=== PATIENT | male | born 1960 | race Caucasian/White ===

== ENCOUNTER 2019-10-12 10:28 | Day surgery (SDC) | payer SELFPAY ==
[2019-10-09 13:41] VITALS: BMI 23.0
[2019-10-12 10:40] VITALS: BP 126/81; PULSE 65; RESP 18; TEMP 36.4; O2SAT 100
--- NOTE | 2019-10-12 10:57 | W.PM.OPSUD ---
Surgery/Procedure H&P Update DATE OF PROCEDURE: October 12, 2019 DATE H&P PERFORMED: 10/09/19 H&P UPDATE INFORMATION: I have reviewed H&P completed within last 30 days, I have examined patient prior to procedure and No changes to prior documentation PREOP DIAGNOSIS: Left shoulder mass PLANNED PROCEDURE: Operation Date: 10/12/19 13:30 Proposed Procedures p Excision mass of left shoulder 22449 R22.9(Left) - Kevin Parsons MD
[2019-10-12] MEDS: sodium chloride 0.9% 1,000 ML 30 ML IV (11:11)
--- NOTE | 2019-10-12 11:26 | ANES.PREANE2 ---
Pre-Anesthetic Assessment Pre-Anesthetic Assessment: Height/Weight: Height 1.75 m Weight 70.76 kg Temp Pulse Resp BP Pulse Ox 97.5 F L 65 18 126/81 100 10/12/19 10:40 10/12/19 10:40 10/12/19 10:40 10/12/19 10:40 10/12/19 10:40 Preop Diagnosis: Left shoulder mass Proposed Procedure: Operation Date: 10/12/19 13:30 Proposed Procedures p Excision mass of left shoulder 30972 R22.9(Left) - Kevin Parsons MD Familial anesthetic complications: No history of anesthesia Was Beta Josemanuel taken within 24 hours: N/A Last intake: Intake Last Liquid Date 10/12/19 Last Liquid Time 08:00 Last Solid Date 10/11/19 Last Solid Time 23:00 Social: Social History: No alcohol and No tobacco Exam: Pre-Anes Outpt Exam: alert, oriented x 3, clear to auscultation bilaterally and regular rate & rhythm Airway: Cervical ROM: WNL MP: 2 Dentition: False Pulmonary: Pulmonary: None reported CV/HEM: CV/HEM: None reported : : None reported Hepatic: Hepatic: None reported GI: GI: GERD Metabolic: Metabolic: None reported Musc/skel: Musc/skel: None reported Neuropsych: Neuropsych: None reported Anesthetic Plan: ASA status: 1 Anesthesia: MAC Risk of > 500 ml blood loss (7ml/kg in children): No Meds/Allergies Current Medications: Current Medications Generic Name Dose Route Start Last Admin Trade Name Freq PRN Reason Stop Dose Admin Sodium Chloride 1,000 mls @ 30 ml s/hr 10/12/19 10:45 10/12/19 11:11 Sodium Chloride 0.9% IV 10/13/19 10:44 30 mls/hr .Q24H BILL Administration PFSH Anesthesia PFSH: Medical History BPH (benign prostatic hyperplasia) GERD (gastroesophageal reflux disease) Mass of skin, superficial, localized Family History Mother CAD (coronary artery disease) Cancer Denies family history of Anesthesia complication Bleeding disorder Social History Smoking and tobacco status: current every day smoker smokeless tobacco Household members: spouse Marital status: Current occupational status: employed Data Anesthesia Cardiac Studies: No Data to Display
[2019-10-12] MEDS: vancomycin 1,000 MG in sodium chloride 0.9% 250 ML 250 MG IV (11:31)
[2019-10-12] MEDS: lidocaine 1% INJ 20 mL SUBCUT (12:20)
[2019-10-12 12:31] VITALS: BP 114/67; PULSE 58; RESP 16; TEMP 36.7; O2SAT 97
[2019-10-12 13:32] VITALS: BP 135/79; PULSE 52; RESP 18; TEMP 36.8; O2SAT 98
--- NOTE | 2019-10-22 16:03 | PM.OP ---
Operative Report Date of procedure: October 12, 2019 Pre-op Diagnosis: Left shoulder mass Post-op diagnosis: same Procedure Done: Excision of mass left shoulder Specimens removed/disposition: Mass left shoulder Surgeon: Kevin Parsons Anesthesia: MAC Estimated blood loss (mL): 5 Condition: stable Disposition: PACU Procedure: The patient was taken to the operating room and placed in the right lateral position under MAC after IV antibiotic had been administered. The left shoulder was prepped and draped in a sterile manner. Using a 15 blade a 4 cm longitudinal incision was made over the palpable mass after 1% lidocaine with 0.5% Marcaine was infiltrated around the mass. Using electrocautery, the subcutaneous tissue was divided and the mass was dissected free from the surrounding subcutaneous tissue and underlying deltoid muscular fascia without difficulty. The wound was irrigated with saline and the specimen was sent to pathology. Subcutaneous tissue was approximated using running 3-0 Vicryl suture and skin was closed using running subcuticular 4-0 Monocryl suture and Dermabond. The patient was transferred to recovery room in stable condition.
== END 2019-10-12 13:45 | disposition home or self-care (01) ==
PROVIDERS: Family Provider Nurse Practitioner; PCP Family Medicine; Visit Provider Surgery
PROC: (CPT 23076; principal; 2019-10-12 13:20)
DX: D17.9 Benign lipomatous neoplasm, unspecified (principal); K21.9 Gastro-esophageal reflux disease without esophagitis; N40.0 Benign prostatic hyperplasia without lower urinary tract symptoms; F17.290 Nicotine dependence, other tobacco product, uncomplicated; Z82.49 Family history of ischemic heart disease and other diseases of the circulatory system
CPT/HCPCS: 23076; 12345; 88304; J2250; J2704; J3010; J3370; J3490; J7030; J7050

== ENCOUNTER 2020-11-25 11:23 | Inpatient (IN) | payer OTHER, SELFPAY ==
[2020-11-25] VITALS (8 sets, daily range): BP systolic 113–168; BP diastolic 63–82; PULSE 72–100; RESP 16–32; TEMP 37.1–38.8; O2SAT 89–95; BMI 23.6
--- NOTE | 2020-11-25 11:59 | XR_ITS ---
WS: [id number] Portable AP upright chest, 11/25/2020 Clinical Data: COVID/SOB Comparison: Portable chest, 05/10/2016. Findings: There is minimal bilateral patchy opacity. No nodules, masses or effusions are seen. The pu lmonary vascularity is not remarkable. The heart is not enlarged. The aortic arch is mildly tortuous. XR/XR chest 1V portable [id number] Impression: 1. Minimal bilateral patchy opacity which could represent acute pneumonia. 2. Atherosclerosis.
--- NOTE | 2020-11-25 12:03 | PC.NURSE ---
Denies pain, only body aches and stomach cramps
--- NOTE | 2020-11-25 16:30 | PC.NURSE ---
Assumed care of this patient at this time.
--- NOTE | 2020-11-25 17:07 | W.ED.COVID ---
HPI - COVID General: Chief Complaint: COVID symptoms Stated Complaint: sob, covid positive Time Seen by Provider: 11/25/20 16:22 Triage information: Has fever, cough or shortness of breath. Exposure to COVID + person last 14 days History of Present Illness: MD complaint: reported COVID exposure and has COVID symptoms COVID 19 common symptoms: positive fever(s), chills, cough, non-productive cough, dyspnea, fatigue, body aches, headache(s), throat pain, nasal congestion, nausea, vomiting and diarrhea COVID 19 other sytmptoms: positive requiring oxygen; negative chest pain Onset (ago): week(s) (1) Severity: moderate Treatment prior to arrival: none COVID Results: SARS-CoV-2 Antigen (Rapid) Positive (Negative) H 11/25/20 16:51 11/25/20 SARS-CoV-2 RNA (RT-PCR) Detected (NOT DETECTED) A 11/25/20 16:50 11/25/20 Review of Systems Const: Reports: fever(s), chills, body aches and fatigue ENMT: Reports: throat pain and nasal congestion Card: Denies: chest pain, edema, dyspnea on exertion or orthopnea Resp: Reports: dyspnea and non-productive cough GI: Reports: nausea, vomiting and diarrhea : Denies: flank pain, dysuria, urinary frequency or urinary urgency Skin/Breast: Denies: rash or pruritus Neuro: Reports: headache(s) [facility] PFSH: Medical History (Updated 12/02/20 @ 06:36 by Jorge Sams DO) BPH (benign prostatic hyperplasia) not on treatment GERD (gastroesophageal reflux disease) Surgical History H/O excision of mass (~09/2019) Lipoma left shoulder Family History (Updated 11/25/20 @ 22:35 by Maddi Bose MD) Mother CAD (coronary artery disease) Cancer Father CAD (coronary artery disease) Diabetes Denies family history of Anesthesia complication Bleeding disorder Social History (Updated 11/25/20 @ 22:36 by Maddi Bose MD) Smoking and tobacco status: current every day smoker smokeless tobacco Alcohol intake: never Substance/Drug Use: never Household members: spouse Marital status: Physical Exam Const: COMMON NORMALS: no acute distress GENERAL APPEARANCE: cooperative and comfortable ORIENTATION/CONSCIOUSNESS: Yes awake, Yes oriented to person, Yes oriented to place and Yes oriented to time HENMT: COMMON NORMALS: normocephalic, atraumatic and hearing grossly normal bilaterally HEAD & SCALP: normocephalic and atraumatic Resp: AUSCULTATION: crackles and wheezes Cardio: RATE: tachycardic RHYTHM: abnormal rhythm GI: COMMON NORMALS: Soft to palpation and No hepatosplenomegaly present AUSCULTATION: Yes normoactive bowel sounds PALPATION: Yes Soft to palpation, No Tenderness to palpation present (GI), No Guarding due to palpation present (GI) and Yes No hepatosplenomegaly present Extremity: COMMON NORMALS: normal to inspection, capillary refill normal, no clubbing, cyanosis or edema, no calf tenderness and no pedal edema Neuro: SENSORIUM/ORIENTATION: Yes oriented to person, Yes oriented to place and Yes oriented to time Skin: COMMON NORMALS: no rashes or lesions noted GENERAL SKIN EXAM: no rashes or lesions noted Course Vital Signs: Vital signs: Vital Signs Temperature 98.1 F 12/02/20 04:00 Pulse Rate 94 12/02/20 04:00 Respiratory Rate 18 12/02/20 04:00 Blood Pressure 112/70 12/02/20 04:00 Pulse Oximetry 96 12/02/20 04:00 MDM - COVID MDM Narrative: Medical decision making narrative: Covid pneumonia requiring oxygen support. Significant x-ray findings anticipate patient will require hospital stay given his clinical trajectory anticipate but significant potential for worsening condition. Discussed the hospitalist orders written. To start remdesivir and dexamethasone. Lab Data: Labs: Lab Results 11/25/20 11/25/20 11/25/20 Range/Units 16:40 16:40 16:40 WBC 4.7 (4.0-10.0) 10^3/ uL RBC 5.57 H (4.1-5.3) 10^6/u L Hgb 16.6 (11.7-16.6) g/dL Hct 50.3 (42.0-52.0) % MCV 90.3 (80-94) fl MCH 29.8 (28.0-34.0) pg MCHC 33.0 (30.0-36.0) g/dL RDW 13.0 (12.1-15.1) % Plt Count 177 (130-400) 10^3/c mm MPV 10.8 H (7.4-10.4) fL Neut % (Auto) 80.6 % Lymph % (Auto) 13.7 % [place] % (Auto) 4.9 % Eos % (Auto) 0.0 % Baso % (Auto) 0.4 % Neut # (Auto) 3.82 (1.8-7.7) 10^3/u L Lymph # (Auto) 0.7 L (0.8-4.8) 10^3/u L [place] # (Auto) 0.2 (0.2-0.9) 10^3/u L Eos # (Auto) 0.0 (0.0-0.8) 10^3/u L Baso # (Auto) 0.0 (0.0-0.1) 10^3/u L Nucleated RBC % (a uto) 0 % Nucleated RBCs # 0.0 /100WBC D-Dimer (0-0.59) ug/mIFE U Sodium 135 L (136-145) mmol/L Potassium 3.7 (3.5-5.1) mmol/L Chloride 93 L (98-107) mmol/L Carbon Dioxide 25 (22-29) mmol/L Anion Gap 20.7 H (5-19) BUN 11 (8-23) mg/dL Creatinine 0.9 (0.7-1.2) mg/dL GFR Calculation 85.5 L (90-130) mL/min Glucose 112 (65-115) mg/dL Calculated Osmolal ity 280 L (285-295) mOsm/k g Lactic Acid 2.0 (0.5-2.2) mmol/L Calcium 8.6 (8.5-10.5) mg/dL Total Bilirubin 0.6 (0.15-1.2) mg/dL AST 182 H (0-40) U/L ALT 127 H (0-41) U/L Alkaline Phosphata se 124 (40-130) IU/L C-Reactive Protein 109.7 H (0.0-4.9) mg/L Total Protein 7.8 (6.6-8.7) g/dL Albumin 4.0 (3.5-5.2) g/dL Globulin 3.8 (1.3-4.6) g/dL Procalcitonin 0.76 H (0-0.5) ng/mL SARS-CoV-2 RNA (RT -PCR) (NOT DETECTED) SARS-CoV-2 Ag (Rap id) (Negative) 11/25/20 11/25/20 11/25/20 Range/Units 16:40 16:50 16:51 WBC (4.0-10.0) 10^3/ uL RBC (4.1-5.3) 10^6/u L Hgb (11.7-16.6) g/dL Hct (42.0-52.0) % MCV (80-94) fl MCH (28.0-34.0) pg MCHC (30.0-36.0) g/dL RDW (12.1-15.1) % Plt Count (130-400) 10^3/c mm MPV (7.4-10.4) fL Neut % (Auto) % Lymph % (Auto) % [place] % (Auto) % Eos % (Auto) % Baso % (Auto) % Neut # (Auto) (1.8-7.7) 10^3/u L Lymph # (Auto) (0.8-4.8) 10^3/u L [place] # (Auto) (0.2-0.9) 10^3/u L Eos # (Auto) (0.0-0.8) 10^3/u L Baso # (Auto) (0.0-0.1) 10^3/u L Nucleated RBC % (a uto) % Nucleated RBCs # /100WBC D-Dimer 2.10 H (0-0.59) ug/mIFE U Sodium (136-145) mmol/L Potassium (3.5-5.1) mmol/L Chloride (98-107) mmol/L Carbon Dioxide (22-29) mmol/L Anion Gap (5-19) BUN (8-23) mg/dL Creatinine (0.7-1.2) mg/dL GFR Calculation (90-130) mL/min Glucose (65-115) mg/dL Calculated Osmolal ity (285-295) mOsm/k g Lactic Acid (0.5-2.2) mmol/L Calcium (8.5-10.5) mg/dL Total Bilirubin (0.15-1.2) mg/dL AST (0-40) U/L ALT (0-41) U/L Alkaline Phosphata se (40-130) IU/L C-Reactive Protein (0.0-4.9) mg/L Total Protein (6.6-8.7) g/dL Albumin (3.5-5.2) g/dL Globulin (1.3-4.6) g/dL Procalcitonin (0-0.5) ng/mL SARS-CoV-2 RNA (RT -PCR) Detected A (NOT DETECTED) SARS-CoV-2 Ag (Rap id) Positive H (Negative) COVID Results: SARS-CoV-2 Antigen (Rapid) Positive (Negative) H 11/25/20 16:51 11/25/20 SARS-CoV-2 RNA (RT-PCR) Detected (NOT DETECTED) A 11/25/20 16:50 11/25/20 Discharge Plan Discharge Patient Disposition: Admitted As Inpatient Admit Provider: Guido Tavares Clinical Impression: Pneumonia due to COVID-19 virus, Acute hypoxemic respiratory failure due to COVID-19 Condition: Stable Coding Level of Care Code 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
[2020-11-25 17:10] LABS: Basophils % 0.4 %; Hematocrit 50.3 % (42.0-52.0); Hemoglobin 16.6 g/dL (11.7-16.6); Lymphocytes # 0.7 10^3/uL (0.8-4.8); Lymphocytes % 13.7 %; Mean Corpuscular Hemoglobin 29.8 pg (28.0-34.0); Mean Corpuscular Volume 90.3 fl (80-94); Mean Platelet Volume 10.8 fL (7.4-10.4); Monocytes # 0.2 10^3/uL (0.2-0.9); Monocytes % 4.9 %; Neutrophils # 3.82 10^3/uL (1.8-7.7); Neutrophils % 80.6 %; Nucleated Red Blood Cells % 0 %; Platelet Count 177 10^3/cmm (130-400); Red Blood Count 5.57 10^6/uL (4.1-5.3); White Blood Count 4.7 10^3/uL (4.0-10.0)
[2020-11-25 17:22] LABS: SARS Covid-2 Antigen Positive (Negative)
[2020-11-25] MEDS: acetaminophen 500 mg Tablet 1000 MG PO (17:38)
[2020-11-25 17:44] LABS: Procalcitonin 0.76 ng/mL (0-0.5)
--- NOTE | 2020-11-25 17:52 | CTR_ITS ---
PROCEDURE INFORMATION: Exam: CTA Chest With Contrast Exam date and time: 11/25/2020 5:52 PM Age: 60 years old Clinical indication: Shortness of breath; Additional info: Elevated d dimer, covid TECHNIQUE: Imaging protocol: Computed tomographic angiography of the chest with contrast. 3D rendering (Not supervised by radiologist): MIP and/or 3D reconstructed images were created by the technologist. Radiation optimization: All CT scans at this facility use at least one of these dose optimization techniques: automated exposure control; mA and/or kV adjustment per patient size (includes targeted exams where dose is matched to clinical indication); or iterative reconstruction. Contrast material: OMNI 350; Contrast volume: 65 ml; Contrast route: INTRAVENOUS (IV); COMPARISON: CTA Chest-Pulmonary Emb [id number] 05/10/2016 11:11 PM RADIATION DOSE METRICS: Total DLP (mGy-cm): 562.92 FINDINGS: Pulmonary arteries: There is no evidence of filling defects within the pulmonary arterial circulation to suggest pulmonary embolism. Aorta: There is mild ectasia of the ascending thoracic aorta which measures 4 cm in diameter. This is larger than on 05/10/2016. There is no thoracic aortic aneurysm or dissection. Lungs: There are areas of ground-glass opacity in both lungs with consolidation and some crazy paving type appearance consistent with the given clinical history of COVID-19 infection. There is calcified granuloma in the left lower lobe. Pleural spaces: Unremarkable. No pneumothorax. No pleural effusion. Heart: Unremarkable. No cardiomegaly. No pericardial effusion. Lymph nodes: There are normal-sized mediastinal lymph nodes but no adenopathy. There are calcified hilar and mediastinal lymph nodes in keeping with old granulomatous disease. Gallbladder and bile ducts: Multiple calcified gallstones are present. Spleen: The spleen demonstrates punctate calcifications, consistent with remote granulomatous organism exposure. Bones/joints: Unremarkable. No acute fracture. Soft tissues: Unremarkable. CT/CT angio chest PE protcl [id number] IMPRESSION: 1. Commonly reported imaging features of COVID-19 pneumonia are present. Other processes such as influenza pneumonia and organizing pneumonia, as can be seen with drug toxicity and connective tissue disease, can cause a similar imaging pattern. 2. No evidence of pulmonary embolism. 3. Old granulomatous disease 4. Cholelithiasis Radiation Dose CTDIVOL = (mGy): DLP = 562.92 (mGy-cm)
[2020-11-25 18:09] LABS: Alanine Aminotransferase 127 U/L (0-41); Alkaline Phosphatase 124 IU/L (40-130); Anion Gap 20.7 (5-19); Aspartate Amino Transferase 182 U/L (0-40); Blood Urea Nitrogen 11 mg/dL (8-23); C Reactive Protein 109.7 mg/L (0.0-4.9); Calcium 8.6 mg/dL (8.5-10.5); Carbon Dioxide 25 mmol/L (22-29); Chloride 93 mmol/L (98-107); Globulin 3.8 g/dL (1.3-4.6); Glomerular Filtration Rate 85.5 mL/min (90-130); Glucose 112 mg/dL (65-115); Osmolality Calculated 280 mOsm/kg (285-295); Potassium 3.7 mmol/L (3.5-5.1); Sodium 135 mmol/L (136-145); Total Bilirubin 0.6 mg/dL (0.15-1.2); Total Protein 7.8 g/dL (6.6-8.7)
[2020-11-25] MEDS: iohexol 350 mg/mL 100 mL Btl IV (18:35)
--- NOTE | 2020-11-25 22:24 | P.HP_ITS ---
Providers/Chief Complaint Admitting Physician: Dr Bose Primary Care Provider: Zafar Lazcano Chief Complaint: sob, covid positive History of Present Illness Aamir Martinez is a 60 year old male Review of Systems Const: Reports: fever(s), chills, change in appetite, fatigue and malaise Eyes: Denies: blurry vision ENMT: Denies: throat pain, nasal congestion or other (loss of taste and smell) Card: Reports: dyspnea on exertion; Denies: chest pain, palpitations or edema Resp: Reports: dyspnea, productive cough, non-productive cough and chest congestion; Denies: wheezing, pain on inspiration or hemoptysis GI: Denies: abdominal pain, nausea, vomiting, diarrhea or constipation : Denies: difficulty urinating, urinary frequency or difficulty starting urination Musc: Reports: muscle weakness; Denies: neck pain, back pain or extremity pain Skin/Breast: Denies: rash or sores Neuro: Denies: headache(s), numbness in extremities, difficulty walking, dizziness or difficulty communicating thoughts Psych: Denies: anxiety [place]/Lymph: Denies: easy bleeding Medications/Allergies Home Medications Medication Instructions Recorded Confirmed Last Taken Type omeprazole 20 mg capsule,delayed 20 mg PO BID 10/08/19 11/25/20 11/25/20 History release ascorbic acid (vitamin C) [Vitamin 250 mg PO BID 11/25/20 11/25/20 11/24/20 History C] cholecalciferol (vitamin D3) 50 mcg PO DAILY 11/25/20 11/25/20 11/24/20 History [Vitamin D3] zinc 50 mg PO DAILY 11/25/20 11/25/20 11/24/20 History Allergies Allergy/AdvReac Type Severity Reaction Status Date / Time Penicillins Allergy Unknown Verified 11/05/19 09:04 PFSH Acute PFSH: Medical History (Updated 11/25/20 @ 22:35 by Maddi Bose MD) BPH (benign prostatic hyperplasia) not on treatment GERD (gastroesophageal reflux disease) Surgical History H/O excision of mass (~09/2019) Lipoma left shoulder Family History (Updated 11/25/20 @ 22:35 by Maddi Bose MD) Mother CAD (coronary artery disease) Cancer Father CAD (coronary artery disease) Diabetes Denies family history of Anesthesia complication Bleeding disorder Social History (Updated 11/25/20 @ 22:36 by Maddi Bose MD) Smoking and tobacco status: current every day smoker smokeless tobacco Alcohol intake: never Substance/Drug Use: never Household members: spouse Marital status: Vitals/I&O/Wt Last Vital Signs Temp 98.8 F 11/25/20 20:40 Pulse 74 11/25/20 20:40 Resp 18 11/25/20 20:40 BP 118/71 11/25/20 20:40 Pulse Ox 95 11/25/20 20:40 Weight last 48 hrs Weight 72.575 kg Physical Exam Narrative: EXAM NARRATIVE: Constitutional: alert but some difficulty answering questions, oriented to person, place and that he is here with worsening covid, not understanding why he has not been able to shake it , worried about his who is also in ED (but will be discharged), ill appearing HEENT: normocephalic, sclera and conjunctiva injected, no rhinorrhea, dry muscus membranes Neck: supple Respiratory: fine crackles bilaterally, no wheezes, no retractions, on 4 L bnc Cardiovascular: regular, no murmurs Abdomen: soft, non tender, positive bowel sounds Extremities: no edema, no cyanosis Skin: dry, no rashes or bruising Neuro: face symmetric, speech clear but slow to formulate thoughts, moves all extremities Psych: cooperative, worried about Data : 11/25/20 16:40 11/25/20 16:40 Other data: Laboratory Results WBC 4.7 10^3/uL (4.0-10.0) 11/25/20 16:40 RBC 5.57 10^6/uL (4.1-5.3) H 11/25/20 16:40 Hgb 16.6 g/dL (11.7-16.6) 11/25/20 16:40 Hct 50.3 % (42.0-52.0) 11/25/20 16:40 MCV 90.3 fl (80-94) 11/25/20 16:40 MCH 29.8 pg (28.0-34.0) 11/25/20 16:40 MCHC 33.0 g/dL (30.0-36.0) 11/25/20 16:40 RDW 13.0 % (12.1-15.1) 11/25/20 16:40 Plt Count 177 10^3/cmm (130-400) 11/25/20 16:40 MPV 10.8 fL (7.4-10.4) H 11/25/20 16:40 Neut % (Auto) 80.6 % 11/25/20 16:40 Lymph % (Auto) 13.7 % 11/25/20 16:40 [place] % (Auto) 4.9 % 11/25/20 16:40 Eos % (Auto) 0.0 % 11/25/20 16:40 Baso % (Auto) 0.4 % 11/25/20 16:40 Neut # (Auto) 3.82 10^3/uL (1.8-7.7) 11/25/20 16:40 Lymph # (Auto) 0.7 10^3/uL (0.8-4.8) L 11/25/20 16:40 [place] # (Auto) 0.2 10^3/uL (0.2-0.9) 11/25/20 16:40 Eos # (Auto) 0.0 10^3/uL (0.0-0.8) 11/25/20 16:40 Baso # (Auto) 0.0 10^3/uL (0.0-0.1) 11/25/20 16:40 Nucleated RBC % (auto) 0 % 11/25/20 16:40 Nucleated RBCs # 0.0 /100WBC 11/25/20 16:40 D-Dimer 2.10 ug/mIFEU (0-0.59) H 11/25/20 16:40 Sodium 135 mmol/L (136-145) L 11/25/20 16:40 Potassium 3.7 mmol/L (3.5-5.1) 11/25/20 16:40 Chloride 93 mmol/L (98-107) L 11/25/20 16:40 Carbon Dioxide 25 mmol/L (22-29) 11/25/20 16:40 Anion Gap 20.7 (5-19) H 11/25/20 16:40 BUN 11 mg/dL (8-23) 11/25/20 16:40 Creatinine 0.9 mg/dL (0.7-1.2) 11/25/20 16:40 GFR Calculation 85.5 mL/min (90-130) L 11/25/20 16:40 Glucose 112 mg/dL (65-115) 11/25/20 16:40 Calculated Osmolality 280 mOsm/kg (285-295) L 11/25/20 16:40 Lactic Acid 2.0 mmol/L (0.5-2.2) 11/25/20 16:40 Calcium 8.6 mg/dL (8.5-10.5) 11/25/20 16:40 Total Bilirubin 0.6 mg/dL (0.15-1.2) 11/25/20 16:40 AST 182 U/L (0-40) H 11/25/20 16:40 ALT 127 U/L (0-41) H 11/25/20 16:40 Alkaline Phosphatase 124 IU/L (40-130) 11/25/20 16:40 C-Reactive Protein 109.7 mg/L (0.0-4.9) H 11/25/20 16:40 Total Protein 7.8 g/dL (6.6-8.7) 11/25/20 16:40 Albumin 4.0 g/dL (3.5-5.2) 11/25/20 16:40 Globulin 3.8 g/dL (1.3-4.6) 11/25/20 16:40 Procalcitonin 0.76 ng/mL (0-0.5) H 11/25/20 16:40 SARS-CoV-2 Ag (Rapid) Positive (Negative) H 11/25/20 16:51 Impressions Chest X-Ray 11/25/20 11:59 Impression: 1. Minimal bilateral patchy opacity which could represent acute pneumonia. 2. Atherosclerosis. Chest CTA 11/25/20 17:52 IMPRESSION: 1. Commonly reported imaging features of COVID-19 pneumonia are present. Other processes such as influenza pneumonia and organizing pneumonia, as can be seen with drug toxicity and connective tissue disease, can cause a similar imaging pattern. 2. No evidence of pulmonary embolism. 3. Old granulomatous disease 4. Cholelithiasis Radiation Dose CTDIVOL = (mGy): DLP = 562.92 (mGy-cm) A&P Assessment and plan (1) Pneumonia due to COVID-19 virus: Dexamethasone started 11/25 Remdesivir started 11/25 4L BNC at admission CRP 109.7 Procalcitonin 0.76 Blood cultures were collected Check MRSA screen, sputum GS/culture, bacterial antigens Doxycycline empirically D dimer 2.10 CTA 11/25 no pulmonary embolism Pulmonary toilet Flutter, Incentive spirometer Respiratory therapy to follow Check addiitonal baseline covid labs and inflammatory markers Vitamin C, vitamin D, zinc Status: Acute (2) COVID-19 vaccination not done: Status: Acute (3) GERD (gastroesophageal reflux disease): chronically on PPI Status: Chronic Additional A&P Information Receords indicate history of BPH, he denies symptoms, not on medications Inpatient admission Check urinalysis If unable to urinate or significant desaturation with standing to urinate will place jeong Lovenox for DVT prophylaxis PPI for GI prophylaxis Supportive care otherwise Currently anticipate discharge home, possibly with oxygen therapy, however it will ultimately depend on clinical course also with covid, recieved monoclonal antibody in ED 11/25 but at day 9-10 so still at risk for return to need admission, was not requiring oxygen, primarily GI symptoms; Mr Martinez updated on her condition and arrangements made for them to see each other before he goes to the floor. Findings, concerns and plans, including current treatment plans with dexamethasone, Remdesivir, oxygen and supportive care were discussed and he was given an opportunity to ask questions Full code Attestations Medical Necessity Statement*: Anticipate stay greater than 2 midnights in patient with covid, requiring oxygen and other care as noted above. At high risk of rapid clinical decline. 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
--- NOTE | 2020-11-25 23:54 | ECG_ITS ---
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1960 Requested By: Maddi Bose Order Number: [id number] Reading MD: JUSTIN SHELTON Measurements Intervals [place] Rate: 68 P: 37 CT: 168 QRS: -33 QRSD: 160 T: 121 QT: 436 QTc: 466 Interpretive Statements SINUS RHYTHM LEFT AXIS DEVIATION [QRS AXIS < -30] LEFT BUNDLE BRANCH BLOCK [120+ ms QRS DURATION, 80+ ms Q/S IN V1/V2, 85+ ms R IN I/aVL/V5/V6] Compared to ECG 05/10/2016 23:36:19 Left-axis deviation now present Electronically Signed On 11-26-2020 20:17:53 CDT by JUSTIN SHELTON [id number]
[2020-11-26] VITALS (8 sets, daily range): BP systolic 115–129; BP diastolic 59–72; PULSE 62–78; RESP 14–20; TEMP 36.9–37.7; O2SAT 91–94; BMI 25.1
[2020-11-26] MEDS: enoxaparin 40 mg/0.4 mL Syringe SUBCUT ×2 (00:19→22:59)
[2020-11-26] MEDS: remdesivir 200 MG in sodium chloride 0.9% (100 ml) 60 ML 100 MG IV (00:39)
[2020-11-26] MEDS: dexamethasone 4 mg/mL INJ 6 MG IVP ×2 (00:50→23:27)
[2020-11-26 01:14] LABS: Influenza A by IFA Negative (Negative); Influenza B by IFA Negative (Negative)
[2020-11-26] MEDS: doxycycline 100 MG in sodium chloride 0.9% (plus) 100 ML IV ×3 (02:04→22:59)
[2020-11-26 03:49] LABS: ABG PCO2 39.3 mmHg (35-45); ABG PH Result 7.43 (7.35-7.45); Arterial Blood Gas Hematocrit 52.1 % (42-52); Base Excess ABG 1.6 mmol/L (-2.0-2.0); Blood Gas Sample Type Arterial; PO2 ABG 68.1 mmHg (80.0-100.0)
[2020-11-26 03:50] LABS: Blood Gas Sample Site Brachial, right; Oxygen Device NC
[2020-11-26 07:57] LABS: Hematocrit 48.8 % (42.0-52.0); Lymphocytes # 0.6 10^3/uL (0.8-4.8); Lymphocytes % 21.7 %; Mean Corpuscular HGB Conc 32.8 g/dL (30.0-36.0); Mean Corpuscular Hemoglobin 29.9 pg (28.0-34.0); Mean Platelet Volume 10.8 fL (7.4-10.4); Monocytes # 0.2 10^3/uL (0.2-0.9); Monocytes % 5.2 %; Neutrophils % 72.4 %; Nucleated Red Blood Cells % 0 %; Platelet Count 174 10^3/cmm (130-400); Red Blood Count 5.36 10^6/uL (4.1-5.3); Red Cell Distribution Width 13.2 % (12.1-15.1); White Blood Count 2.9 10^3/uL (4.0-10.0)
[2020-11-26 08:16] LABS: Lactate (Lactic Acid level) 1.9 mmol/L (0.5-2.2)
[2020-11-26 08:17] LABS: Troponin T (5th) Once 7 ng/L (0-15)
[2020-11-26 08:25] LABS: NT Pro B Type Natriuretic Pept 70 pg/mL (0-125); Procalcitonin 0.95 ng/mL (0-0.5)
[2020-11-26 08:36] LABS: Alanine Aminotransferase 126 U/L (0-41); Albumin Level 3.7 g/dL (3.5-5.2); Alkaline Phosphatase 111 IU/L (40-130); Anion Gap 22.1 (5-19); Aspartate Amino Transferase 168 U/L (0-40); Blood Urea Nitrogen 14 mg/dL (8-23); C Reactive Protein 126.4 mg/L (0.0-4.9); Calcium 8.2 mg/dL (8.5-10.5); Carbon Dioxide 22 mmol/L (22-29); Chloride 97 mmol/L (98-107); Globulin 2.8 g/dL (1.3-4.6); Glucose 136 mg/dL (65-115); Magnesium 2.3 mg/dL (1.7-2.3); Osmolality Calculated 287 mOsm/kg (285-295); Phosphorus 2.8 mg/dL (2.5-4.5); Potassium 4.1 mmol/L (3.5-5.1); Sodium 137 mmol/L (136-145); Total Bilirubin 0.5 mg/dL (0.15-1.2); Total Protein 6.5 g/dL (6.6-8.7)
[2020-11-26] MEDS: cholecalciferol (vitamin D3) 1,000 unit Tablet 2000 UNIT PO (09:08)
[2020-11-26] MEDS: docusate sodium 100 mg Capsule PO (09:08)
[2020-11-26] MEDS: ascorbic acid 500 mg Tablet 1000 MG PO ×2 (09:08→17:45)
[2020-11-26] MEDS: zinc gluconate 50 mg Tablet PO (09:08)
[2020-11-26 09:09] LABS: Ferritin 3156 ng/mL (30-400)
[2020-11-26] MEDS: pantoprazole DR 40 mg Tablet PO ×2 (09:09→17:45)
[2020-11-26 09:10] LABS: Lactate Dehydrogenase 621 U/L (135-225)
[2020-11-26 09:14] LABS: Creatine Phosphokinase 511 U/L (39-308)
[2020-11-26] MEDS: albuterol 8 gm MDI 2 PUFF INHALATION ×3 (09:45→21:21)
[2020-11-26 14:51] LABS: Add Urine Microscopic? YES; Bilirubin Urine Neg (Negative); Blood Urine 2+ (Negative); Glucose Urine UA Norm (Normal); Ketones Urine 1+ (Negative); Leukocyte Esterase Urine Negative (Negative); Nitrate Urine Negative (Negative); Protein Urine 1+ (Negative); Urine Appearance Clear (CLEAR); Urine Color Yellow (Yellow); Urobilinogen Urine Norm (Negative); pH Urine 5 (5-7)
[2020-11-26 15:12] LABS: Add Urine Culture? Yes; Bacteria Urine 2+ /hpf; Mucus Urine TRACE /hpf; RBC Urine 0-4 /hpf (0-2)
--- NOTE | 2020-11-26 16:01 | P.PN_ITS ---
Subjective Subjective: Interval history: 60-year-old male with a past medical history significant for benign prostatic hyperplasia, gastroesophageal reflux diseaseWho presented to the hospital with respiratory distress.This has been progressively worsening for the past week. Associated with intermittent episodes of fever, nonproductive cough and generalized weakness.Laboratory workup on arrival showed a WBC of 4.7, hemoglobin of 16.6, hematocrit of 50.3 and a platelet count of 177. D-dimer 2.10. Sodium 135, potassium 3.7, chloride 93, bicarb 25, BUN 11 and creatinine of 0.9. AST was elevated at 182, ALT of 127. CRP of 109. Procalcitonin of 0.76. Urinalysis was negative for leukocyte esterase or nitrates. Influenza A/B was negative. Rapid COVID-19 antigen was positive.Ferritin was elevated at 3156. LDH of 621. CK of 511.Imaging studies included a CTA of chest which showed multiple areas of ground-glass opacities bilaterally within both lungs with consolidation without any evidence of pulmonary embolism.Initial vitals showed a temperature of 101.8, pulse of 91, respiratory rate of 32 and a blood pressure of 168/73. Patient was placed on supplemental oxygen.This was later transitioned to high-flow nasal cannula.He was started on Decadron 6 mg IV daily for a 10 day course, Remdesivir 5 day treatment protocol to complete on 11/30, doxycycline 100 mg IV q.12 hours and albuterol neb q4hr prn. Subjective 11/26/2020 Patient transitioned to HFNC, Tmax 100.6 No new complaints. Denied chest pain, nausea, vomiting, abdominal pain, diarrhea or constipation. Medications: Reviewed: Yes Vitals/I&O/Wt Last Vital Signs Temp 98.4 F 11/26/20 15:19 Pulse 78 11/26/20 15:19 Resp 16 11/26/20 15:19 BP 115/59 11/26/20 15:19 Pulse Ox 91 11/26/20 15:19 11/26/20 11/26/20 11/26/20 06:59 14:59 22:59 Intake Total 160 / 160 300 / 300 Output Total 145 / 145 Balance 160 / 160 155 / 155 Weight last 48 hrs Weight 77.111 kg Weight 72.575 kg Physical Exam Narrative: EXAM NARRATIVE: General : Alert awake on supplemental oxygen HEENT; Grossly unremarkable CVS: NSR Chest: Mildly labored respiration ABD: Non-distended Ext: No edema Data : 11/26/20 07:23 11/26/20 07:23 Micro: Microbiology 11/26/20 13:52 Bacterial Antigens - Final Urine,Clean Catch 11/26/20 00:30 MRSA Culture - Final Nose A&P Assessment and plan (1) Acute hypoxemic respiratory failure due to COVID-19: Status: Acute (2) GERD (gastroesophageal reflux disease): Status: Chronic Additional A&P Information Acute hypoxemic respiratory failure due to COVID-19 pneumonia * RR > 30, labored respiration, on HFNC * COVID-19 ag positive * Remdesivir - 5 day protocol - last day on 11/30/20 * Decadron 6 mg IV daily D2 ( total 10 days) * Ferritin 3156, CRP 109, Pro-sylvia 0.76, LDH 621 * Tmax 100.6 - PRN Tylenol * May consider Actemera - will d/w Dr. Bose ( restricted med) * Empirically on Doxycycline 100 mg IV BID * Bacterial ag panel - pending, MRSA screen - Pending * Albuterol q4hr PRN, Spiriva daily * Zinc 50 mg PO daily, Vit.C * Repeat COVID-19 labs in am * Wean oxygen as tolerated Hx of GERD * Protonix 40 mg PO BID DVT ppx * Lovenox 40mg SQ daily Attestations Medical Necessity Statement*: Require further hospitalization for management of COVID-19 pneumonia Time Spent in Patient Care: Greater than 35 minutes (>than 50% of time spent in counselling and/or direct pt care on unit) . Coding Level of Care Code Acute Bed Bug Exterminator for [facility] Diagnoses Acute hypoxemic respiratory failure due to COVID-19 U07.1; J96.01 GERD (gastroesophageal reflux disease) K21.9
[2020-11-26 17:21] LABS: Quest SARS-CoV-2 RNA DETECTED (NOT DETECTED)
[2020-11-27] VITALS (8 sets, daily range): BP systolic 107–148; BP diastolic 58–71; PULSE 65–79; RESP 16–18; TEMP 36.7–37.3; O2SAT 90–95
[2020-11-27] MEDS: remdesivir 100 MG in sodium chloride 0.9% (100 ml) 80 ML IV (06:01)
[2020-11-27] MEDS: albuterol 8 gm MDI 2 PUFF INHALATION (09:16)
[2020-11-27] MEDS: cholecalciferol (vitamin D3) 1,000 unit Tablet 2000 UNIT PO (09:41)
[2020-11-27] MEDS: ascorbic acid 500 mg Tablet 1000 MG PO ×2 (09:41→17:25)
[2020-11-27] MEDS: pantoprazole DR 40 mg Tablet PO ×2 (09:41→17:25)
[2020-11-27] MEDS: zinc gluconate 50 mg Tablet PO (09:41)
[2020-11-27] MEDS: doxycycline 100 MG in sodium chloride 0.9% (plus) 100 ML IV ×2 (12:27→23:19)
[2020-11-27 12:54] LABS: Fibrinogen 528 mg/dL (174-498)
[2020-11-27 12:56] LABS: Hematocrit 47.9 % (42.0-52.0); Hemoglobin 15.9 g/dL (11.7-16.6); Lymphocytes # 0.4 10^3/uL (0.8-4.8); Lymphocytes % 8.7 %; Mean Corpuscular HGB Conc 33.2 g/dL (30.0-36.0); Mean Corpuscular Hemoglobin 30.1 pg (28.0-34.0); Mean Corpuscular Volume 90.5 fl (80-94); Mean Platelet Volume 10.5 fL (7.4-10.4); Monocytes # 0.3 10^3/uL (0.2-0.9); Monocytes % 5.6 %; Neutrophils # 4.23 10^3/uL (1.8-7.7); Neutrophils % 85.3 %; Nucleated Red Blood Cells % 0 %; Platelet Count 214 10^3/cmm (130-400); Red Blood Count 5.29 10^6/uL (4.1-5.3); Red Cell Distribution Width 13.2 % (12.1-15.1)
[2020-11-27 12:57] LABS: D Dimer 1.25 ug/mIFEU (0-0.59)
[2020-11-27 13:10] LABS: Alanine Aminotransferase 133 U/L (0-41); Albumin Level 3.4 g/dL (3.5-5.2); Alkaline Phosphatase 107 IU/L (40-130); Anion Gap 16.5 (5-19); Aspartate Amino Transferase 127 U/L (0-40); Blood Urea Nitrogen 14 mg/dL (8-23); C Reactive Protein 61.2 mg/L (0.0-4.9); Calcium 8.8 mg/dL (8.5-10.5); Carbon Dioxide 23 mmol/L (22-29); Chloride 101 mmol/L (98-107); Globulin 3.2 g/dL (1.3-4.6); Glomerular Filtration Rate 114.3 mL/min (90-130); Glucose 179 mg/dL (65-115); Magnesium 2.3 mg/dL (1.7-2.3); Osmolality Calculated 289 mOsm/kg (285-295); Potassium 3.5 mmol/L (3.5-5.1); Sodium 137 mmol/L (136-145); Total Bilirubin 0.5 mg/dL (0.15-1.2); Total Protein 6.6 g/dL (6.6-8.7)
[2020-11-27 13:13] LABS: Partial Thromboplastin Time 18.2 SECONDS (23.9-36.7); Procalcitonin 0.58 ng/mL (0-0.5)
[2020-11-27 13:43] LABS: Ferritin 3075 ng/mL (30-400)
--- NOTE | 2020-11-27 15:27 | P.PN_ITS ---
Subjective Subjective: Interval history: 60-year-old male with a past medical history significant for benign prostatic hyperplasia, gastroesophageal reflux diseaseWho presented to the hospital with respiratory distress.This has been progressively worsening for the past week. Associated with intermittent episodes of fever, nonproductive cough and generalized weakness.Laboratory workup on arrival showed a WBC of 4.7, hemoglobin of 16.6, hematocrit of 50.3 and a platelet count of 177. D-dimer 2.10. Sodium 135, potassium 3.7, chloride 93, bicarb 25, BUN 11 and creatinine of 0.9. AST was elevated at 182, ALT of 127. CRP of 109. Procalcitonin of 0.76. Urinalysis was negative for leukocyte esterase or nitrates. Influenza A/B was negative. Rapid COVID-19 antigen was positive.Ferritin was elevated at 3156. LDH of 621. CK of 511.Imaging studies included a CTA of chest which showed multiple areas of ground-glass opacities bilaterally within both lungs with consolidation without any evidence of pulmonary embolism.Initial vitals showed a temperature of 101.8, pulse of 91, respiratory rate of 32 and a blood pressure of 168/73. Patient was placed on supplemental oxygen.This was later transitioned to high-flow nasal cannula.He was started on Decadron 6 mg IV daily for a 10 day course, Remdesivir 5 day treatment protocol to complete on 11/30, doxycycline 100 mg IV q.12 hours and albuterol neb q4hr prn. Subjective 11/26/2020 Patient transitioned to HFNC, Tmax 100.6 No new complaints. Denied chest pain, nausea, vomiting, abdominal pain, diarrhea or constipation. 11/27/2020 Overall unchanged from yesterday No new complaints. Medications: Reviewed: Yes Vitals/I&O/Wt Last Vital Signs Temp 98.0 F 11/27/20 19:49 Pulse 73 11/27/20 19:51 Resp 18 11/27/20 19:51 BP 148/71 11/27/20 19:49 Pulse Ox 90 11/27/20 19:51 11/27/20 11/27/20 11/28/20 14:59 22:59 06:59 Intake Total 660 / 660 0 / 660 Balance 660 / 660 0 / 660 Weight last 48 hrs Weight 77.111 kg Physical Exam Narrative: EXAM NARRATIVE: General : Alert awake on supplemental oxygen HEENT; Grossly unremarkable CVS: NSR Chest: Mildly labored respiration ABD: Non-distended Ext: No edema Data : 11/27/20 11:52 11/27/20 11:52 A&P Assessment and plan (1) Acute hypoxemic respiratory failure due to COVID-19: Status: Acute (2) GERD (gastroesophageal reflux disease): chronically on PPI Status: Chronic Additional A&P Information Acute hypoxemic respiratory failure due to COVID-19 pneumonia * RR > 30, labored respiration, on HFNC * COVID-19 ag positive * Remdesivir - 5 day protocol - last day on 11/30/20 * Decadron 6 mg IV daily D3 ( total 10 days) * Ferritin 3156->3075, CRP 109->61.2, Pro-sylvia 0.76->0.58, LDH 621 * 11/26 Tmax 100.6 - PRN Tylenol 11/27- Fever curve improvng * May consider Actemera - CRP improving ( restricted med) * Empirically on Doxycycline 100 mg IV BID * Bacterial ag panel - pending, MRSA screen - Pending * Albuterol q4hr PRN, Spiriva daily * Zinc 50 mg PO daily, Vit.C * Repeat COVID-19 labs in am * Wean oxygen as tolerated Hx of GERD * Protonix 40 mg PO BID DVT ppx * Lovenox 40mg SQ daily Attestations Medical Necessity Statement*: Continue hospitalization for management of COVID-19 pneumonia Time Spent in Patient Care: Greater than 35 minutes (>than 50% of time spent in counselling and/or direct pt care on unit) . Coding Level of Care Code Acute Pecan Mallow Dipper for [facility] Diagnoses Acute hypoxemic respiratory failure due to COVID-19 U07.1; J96.01 GERD (gastroesophageal reflux disease) K21.9
--- NOTE | 2020-11-27 17:46 | PC.RESP ---
RT Shift Note Frequent safety and respiratory rounds continue. Orders completed as indicated. Patient monitored pre and post treatments throughout shift. Patient tolerated treatments appropriately. Condition did not change. Patient and/or sales representative raw fibers educated on respiratory treatment and medications. Patient and/or sales representative raw fibers verbalized understanding. Will continue to monitor patient progress.
[2020-11-27] MEDS: dexamethasone 4 mg/mL INJ 6 MG IVP (23:18)
[2020-11-27] MEDS: enoxaparin 40 mg/0.4 mL Syringe SUBCUT (23:18)
[2020-11-27] MEDS: acetaminophen 325 mg Tablet 650 MG PO (23:50)
[2020-11-28] VITALS (10 sets, daily range): BP systolic 122–133; BP diastolic 61–76; PULSE 68–81; RESP 14–28; TEMP 36.3–36.8; O2SAT 88–94
[2020-11-28] MEDS: remdesivir 100 MG in sodium chloride 0.9% (100 ml) 80 ML IV (05:54)
[2020-11-28] MEDS: pantoprazole DR 40 mg Tablet PO ×2 (08:04→17:38)
[2020-11-28] MEDS: ascorbic acid 500 mg Tablet 1000 MG PO ×2 (08:04→17:38)
[2020-11-28] MEDS: cholecalciferol (vitamin D3) 1,000 unit Tablet 2000 UNIT PO (08:04)
[2020-11-28] MEDS: zinc gluconate 50 mg Tablet PO (08:04)
--- NOTE | 2020-11-28 11:45 | USCV_ITS ---
Aamir Martinez Age: 60 Gender: M : 1960 Exam Date: 11/28/2020 13:13 Ordering Phys: Everett Phipps MD Technologist: MAYCOL Exam Location: [facility] [place] Indication: sob, covid + BP: / HR: 75 Rhythm: Sinus Technical Quality: Good MEASUREMENTS (Male / Female) Normal Values 2D ECHO LV Diastolic Diameter PLAX 4.3 cm 4.2 - 5.9 / 3.9 - 5.3 cm LV Systolic Diameter PLAX 3.0 cm IVS Diastolic Thickness 1.0 cm 0.6 - 1.0 / 0.6 - 0.9 cm IVS Systolic Thickness 1.6 cm LVPW Diastolic Thickness 1.3 cm 0.6 - 1.0 / 0.6 - 0.9 cm LVPW Systolic Thickness 1.5 cm LVOT Diameter 2.0 cm LV Ejection Fraction 2D Teich 57.4 % LV Ejection Fraction MOD 2C 70.7 % LV Ejection Fraction 2C AL 72.6 % LA Diameter 3.1 cm LA Width 2.7 cm LA Height 3.3 cm RA Width 2.6 cm RA Height 4.5 cm Aorta at Sinotubular Diameter 2.8 cm DOPPLER AV Peak Velocity 160.0 cm/s LVOT Peak Velocity 150.0 cm/s AV Area Cont Eq vti 2.8 cm squared AV Area Cont Eq pk 3.0 cm squared MV Peak Velocity 120.0 cm/s MV Area PHT 3.0 cm squared Mitral E to A Ratio 0.7 MV E' Velocity 44.5 cm/s Mitral E to MV E' Ratio 7.6 Mitral E to LV E' Lateral Ratio 7.6 Mitral E to LV E' Septal Ratio 7.6 TR Peak Velocity 208.8 cm/s TR Peak Gradient 17.4 mmHg TR Mean Velocity 213.0 cm/s TR Mean Gradient 20.1 mmHg TR Velocity Time Integral 72.8 cm PV Peak Velocity 146.0 cm/s RV Acceleration Time 0.1 s RV Ejection Time 0.2 s RV AcT/ET 0.3 FINDINGS Left Ventricle Normal left ventricular cavity size. Normal left ventricular systolic function. No regional wall motion abnormalities. Left ventricular ejection fraction is estimated at 60 %.Grade I/IV diastolic dysfunction (abnormal relaxation filling pattern), normal to mildly elevated filling pressures. Right Ventricle The right ventricle is normal in size and function. RVSP could not be calculated due to incomplete tricuspid regurgitation velocity profile. Right Atrium The right atrium is normal in size. Left Atrium The left atrium is normal in size. Mitral Valve Moderately thickened mitral valve. No mitral valve stenosis. Moderate mitral annular calcification. Aortic Valve Moderate aortic valve calcification. No aortic valve stenosis. No aortic valve regurgitation. Tricuspid Valve Structurally normal tricuspid valve without significant stenosis or regurgitation. Pulmonic Valve Structurally normal pulmonic valve without significant stenosis. There is no pulmonic regurgitation. Pericardium Normal pericardium without effusion. Aorta Normal ascending aorta dimension. CONCLUSIONS 1-Normal left ventricular cavity size. Normal left ventricular systolic function. No regional wall motion abnormalities. Left ventricular ejection fraction is estimated at 60 %.Grade I/IV diastolic dysfunction (abnormal relaxation filling pattern), normal to mildly elevated filling pressures. 2-Moderately thickened mitral valve. No mitral valve stenosis. Moderate mitral annular calcification. 3-Moderate aortic valve calcification. No aortic valve stenosis. No aortic valve regurgitation. 4-There is no pericardial effusion. 5-The right ventricle is normal in size and function. RVSP could not be calculated due to incomplete tricuspid regurgitation velocity profile. 6-Right atrial pressure is around 5 mm of mercury. 7-There are no prior echocardiogram studies to compare. Adalgsia Lim MD (Electronically Signed) Final Date: 28 November 2020 18:05 S
[2020-11-28] MEDS: cefTRIAXone 1,000 MG in sodium chloride 0.9% (plus) 50 ML 100 MG IV (12:23)
[2020-11-28 12:27] LABS: Iron 63 ug/dL (59-158); Percent Saturation 25.9 % (20-50); Total Iron Binding Capacity 243 mcg/dl; Unsaturated Iron Binding 180 ug/dL (112-347)
[2020-11-28 12:39] LABS: Thyroid Stimulating Hormone 0.31 uIU/mL (0.27-4.20)
[2020-11-28] MEDS: benzonatate 100 mg Capsule PO ×2 (14:55→23:46)
--- NOTE | 2020-11-28 16:21 | PC.RESP ---
RT Shift Note Frequent safety and respiratory rounds continue. Orders completed as indicated. Patient monitored pre and post treatments throughout shift. Patient did tolerate treatments appropriately. Condition improved. Patient and/or medical customer service representative educated on respiratory treatment and medications. Patient and/or medical customer service representative verbalized understanding. Will continue to monitor patient progress.
--- NOTE | 2020-11-28 16:33 | P.PN_ITS ---
Subjective Subjective: Interval history: Hospital course, labs appreciated. Examination patient is on 8 L high flow nasal cannula saturating 92%. Denies any nausea, vomiting, headache. Lying comfortably in bed. States he has been working with incentive spirometry and flutter valve. Wants to go home as soon as possible. Discussed in detail with need for continuous and regular I-S and Acapella use along with proning and semiproning techniques and for need for patient to be sitting up in chair for as long as possible. Patient verbalized understanding. Vitals/I&O/Wt Last Vital Signs Temp 97.5 F L 11/28/20 16:00 Pulse 74 11/28/20 16:00 Resp 18 11/28/20 16:00 BP 127/72 11/28/20 16:00 Pulse Ox 92 11/28/20 16:00 11/28/20 11/28/20 11/28/20 06:59 14:59 22:59 Intake Total 100 / 760 200 / 200 Output Total 200 / 200 Balance 100 / 760 200 / 200 -200 / 0 Physical Exam Narrative: EXAM NARRATIVE: General: No acute distress, AO x3, tired appearing HEENT: PERRLA, pupils bilaterally equal and reactive Chest: Bilateral bronchial breath sounds, occasional rhonchi present, equal good air entry bilaterally CVS: S1-S2 regular, no murmurs, no tachycardia, no gallops, no rubs Abdomen: Soft, nontender, no organomegaly, bowel sounds present Neuro: No focal deficits, no facial deformity, AO x3, power 5/5 in all limbs Data : 11/27/20 11:52 11/27/20 11:52 A&P Assessment and plan (1) Acute hypoxemic respiratory failure due to COVID-19: Status: Acute (2) COVID-19 vaccination not done: Status: Acute Additional A&P Information Hypoxia secondary to COVID-19 pneumonia: Mild to moderate disease. Oxygen supplementation keeping saturation over 88%. Dexamethasone 6 mg daily. Remdesivir to finish a 5-day course. Vitamin C, zinc. Advair, Spiriva. Pulmonary toilet with incentive spirometry flutter valve. We will monitor inflammatory markers including ferritin, ESR, CRP, D-dimer, fibrinogen. D-dimer elevated. CTA negative for pulmonary embolism. For now start patient on full dose anticoagulation with Eliquis 5 mg twice daily. Patient will most likely require anticoagulation for 2 weeks on discharge. Will monitor for anemia or blood loss. Return elevated. Check sputum culture, urine Legionella. Bacterial antigen negative. MRSA swab negative. Blood cultures not sent on admission. For now patient has remained afebrile so we will hold off on blood cultures. Stop doxycycline. Start patient on IV ceftriaxone and oral Levaquin. Will most likely require 5- day course. Will change antibiotics as per culture results. Given hypoxia will try to keep patient as negative as possible. Patient clinically dehydrated for now. For now we will hold off on diuresis for gentle hydration. Echocardiogram. Fluid restriction up to 1800 cc. Strict input output charting, daily weights. Full code. Protonix for PUD prophylaxis. Eliquis will help with DVT prophylaxis. Attestations Medical Necessity Statement*: Requires further hospitalization for management of severe hypoxia secondary COVID-19 pneumonia Time Spent in Patient Care: Greater than 35 minutes (>than 50% of time spent in counselling and/or direct pt care on unit) . Coding Level of Care Code Acute Manufacturing Director for [facility] Diagnoses Acute hypoxemic respiratory failure due to COVID-19 U07.1; J96.01 COVID-19 vaccination not done Z28.9
[2020-11-28] MEDS: ferrous gluconate 324 mg Tablet PO (17:38)
[2020-11-28] MEDS: dexamethasone 4 mg/mL INJ 6 MG IVP (23:45)
[2020-11-28] MEDS: apixaban 5 mg Tablet PO (23:46)
[2020-11-29] VITALS (10 sets, daily range): BP systolic 121–139; BP diastolic 71–79; PULSE 71–96; RESP 15–24; TEMP 36.5–36.8; O2SAT 85–96
[2020-11-29 03:49] LABS: Hematocrit 46.8 % (42.0-52.0); Hemoglobin 15.4 g/dL (11.7-16.6); Lymphocytes # 0.5 10^3/uL (0.8-4.8); Mean Corpuscular HGB Conc 32.9 g/dL (30.0-36.0); Mean Corpuscular Hemoglobin 29.4 pg (28.0-34.0); Mean Corpuscular Volume 89.5 fl (80-94); Mean Platelet Volume 9.8 fL (7.4-10.4); Monocytes # 0.4 10^3/uL (0.2-0.9); Monocytes % 5.3 %; Neutrophils # 6.63 10^3/uL (1.8-7.7); Neutrophils % 88.3 %; Nucleated Red Blood Cells % 0 %; Platelet Count 255 10^3/cmm (130-400); Red Blood Count 5.23 10^6/uL (4.1-5.3); Red Cell Distribution Width 13.1 % (12.1-15.1); White Blood Count 7.5 10^3/uL (4.0-10.0)
[2020-11-29 04:08] LABS: D Dimer 1.02 ug/mIFEU (0-0.59)
[2020-11-29 04:14] LABS: Alanine Aminotransferase 160 U/L (0-41); Albumin Level 3.3 g/dL (3.5-5.2); Alkaline Phosphatase 112 IU/L (40-130); Anion Gap 16.7 (5-19); Aspartate Amino Transferase 107 U/L (0-40); Blood Urea Nitrogen 17 mg/dL (8-23); Calcium 8.8 mg/dL (8.5-10.5); Carbon Dioxide 24 mmol/L (22-29); Chloride 104 mmol/L (98-107); Globulin 2.9 g/dL (1.3-4.6); Glomerular Filtration Rate 136.5 mL/min (90-130); Glucose 167 mg/dL (65-115); Osmolality Calculated 297 mOsm/kg (285-295); Potassium 3.7 mmol/L (3.5-5.1); Sodium 141 mmol/L (136-145); Total Bilirubin 0.8 mg/dL (0.15-1.2); Total Protein 6.2 g/dL (6.6-8.7)
[2020-11-29 04:21] LABS: C Reactive Protein 17.2 mg/L (0.0-4.9); NT Pro B Type Natriuretic Pept 87 pg/mL (0-125)
[2020-11-29 04:44] LABS: Erythrocyte Sedimentation Rate 23 mm/hr (0-10)
--- NOTE | 2020-11-29 06:00 | XRR_ITS ---
PROCEDURE INFORMATION: Exam: XR Chest Exam date and time: 11/29/2020 6:00 AM Age: 60 years old Clinical indication: Condition or disease; Other: Covid TECHNIQUE: Imaging protocol: XR of the chest. Views: 1 view. COMPARISON: CR XR chest 1V portable [id number] 11/25/2020 12:08 PM FINDINGS: Lungs: Bilateral patchy hazy interstitial infiltrates are present. They are increasing in the left lung when compared to previous study. Pleural spaces: Unremarkable. No pleural effusion. No pneumothorax. Heart/Mediastinum: Unremarkable. No cardiomegaly. Bones/joints: Unremarkable. XR/XR chest 1V portable [id number] IMPRESSION: Increasing bilateral interstitial infiltrates consistent with interstitial viral pneumonia.
[2020-11-29] MEDS: levoFLOXacin 500 mg Tablet PO (06:04)
[2020-11-29] MEDS: remdesivir 100 MG in sodium chloride 0.9% (100 ml) 80 ML IV (06:04)
[2020-11-29] MEDS: benzonatate 100 mg Capsule PO ×3 (09:40→21:59)
[2020-11-29] MEDS: ascorbic acid 500 mg Tablet 1000 MG PO ×2 (09:40→17:15)
[2020-11-29] MEDS: ferrous gluconate 324 mg Tablet PO ×2 (09:40→17:15)
[2020-11-29] MEDS: zinc gluconate 50 mg Tablet PO (09:41)
[2020-11-29] MEDS: pantoprazole DR 40 mg Tablet PO ×2 (09:41→17:15)
[2020-11-29] MEDS: apixaban 5 mg Tablet PO ×2 (09:44→21:59)
[2020-11-29] MEDS: albuterol 8 gm MDI 2 PUFF INHALATION (09:56)
[2020-11-29] MEDS: FUROsemide 10 mg/mL SDV 4mL 40 MG IVP (12:33)
[2020-11-29] MEDS: cefTRIAXone 1,000 MG in sodium chloride 0.9% (plus) 50 ML 100 MG IV (12:33)
--- NOTE | 2020-11-29 14:03 | P.PN_ITS ---
Subjective Subjective: Interval history: No acute events overnight. Today early in the morning patient had been turned up to 12 L high flow nasal cannula oxygen supplementation and is been transitioned down to 8 L again. Currently 10 L saturating 94%. Slightly tachypneic authorization. States he is eager to go home to take care of his who is also Covid. Working with incentive spirometry and flutter valve. We discussed the need for him to be patient and to continue work with incentive spirometry and flutter valve. We discussed that his oxygen supplementation requirement comes down to less than 5 L he can be discharged safely home but currently he is requiring up to 10 L high flow nasal cannula which is a lot more than what oxygen can be supplied to him at home. Medications: Reviewed: Yes Vitals/I&O/Wt Last Vital Signs Temp 98.1 F 11/29/20 07:55 Pulse 78 11/29/20 10:13 Resp 20 H 11/29/20 10:13 BP 121/71 11/29/20 07:55 Pulse Ox 90 11/29/20 10:13 11/28/20 11/29/20 11/29/20 22:59 06:59 14:59 Intake Total 120 / 320 610 / 610 Output Total 200 / 200 800 / 1000 350 / 350 Balance -80 / 120 -800 / -680 260 / 260 Physical Exam Narrative: EXAM NARRATIVE: General: No acute distress, AO x3, tired appearing, depressed, mildly tearful. HEENT: PERRLA, pupils bilaterally equal and reactive Chest: Bilateral bronchial breath sounds, occasional rhonchi present, equal good air entry bilaterally CVS: S1-S2 regular, no murmurs, no tachycardia, no gallops, no rubs Abdomen: Soft, nontender, no organomegaly, bowel sounds present Neuro: No focal deficits, no facial deformity, AO x3, power 5/5 in all limbs Data : 11/29/20 03:20 11/29/20 03:20 Micro: Microbiology 11/28/20 15:20 Gram Stain - Final Sputum - Expectorated Sputum Sputum Culture - Preliminary A&P Assessment and plan (1) Acute hypoxemic respiratory failure due to COVID-19: Status: Acute (2) COVID-19 vaccination not done: Status: Acute Additional A&P Information Hypoxia secondary to COVID-19 pneumonia: Mild to moderate disease. Oxygen supplementation keeping saturation over 88%. Dexamethasone 6 mg daily. Remdesivir to finish a 5-day course. Vitamin C, zinc. Advair, Spiriva. We will try to move patient to negative pressure room at that point we will start him on nebulization rather than inhalers. Pulmonary toilet with incentive spirometry flutter valve. We will monitor inflammatory markers including ferritin, ESR, CRP, D-dimer, fibr inogen.Inflammatory markers trending down. CRP 17.2<<126.4, D-dimer 1.02<1.25<2.1. D-dimer elevated. CTA negative for pulmonary embolism. For now start patient on full dose anticoagulation with Eliquis 5 mg twice daily. Patient will most likely require anticoagulation for 2 weeks on discharge. Will monitor for anemia or blood loss. Procalcitonin elevated. Urine Legionella, bacterial antigen, MRSA swab negative. Sputum culture pending. For now continue with IV ceftriaxone and oral Levaquin. Will most likely require 5-day course. Will change antibiotics as per culture results. Given hypoxia will try to keep patient as negative as possible. Echocardiogram done shows an EF of 60% with grade 1 diastolic dysfunction, normal RV size and function, moderate thickened mitral valve without stenosis, moderately thickened aortic valve without stenosis. IV Lasix 40 mg 1 time. Fluid restriction up to 1800 cc. Strict input output charting, daily weights. Depression: Not a known history. Start on low-dose Wellbutrin. Full code. Protonix for PUD prophylaxis. Eliquis will help with DVT prophylaxis. Attestations Medical Necessity Statement*: Requires further hospitalization for management of acute hypoxemia secondary to COVID-19 pneumonia Time Spent in Patient Care: Greater than 35 minutes (>than 50% of time spent in counselling and/or direct pt care on unit) . Coding Level of Care Code Acute Directional Bore Operator for [facility]wd Diagnoses Acute hypoxemic respiratory failure due to COVID-19 U07.1; J96.01 COVID-19 vaccination not done Z28.9
[2020-11-29] MEDS: ipratropium-albuterol 3 mL Neb INHALATION ×2 (15:18→21:02)
[2020-11-29] MEDS: nystatin 100,000 unit/mL UDC 5 mL 200000 UNIT PO ×2 (16:17→21:59)
[2020-11-29] MEDS: buPROPion XL (24 HR) 150 mg Tablet PO (16:17)
[2020-11-29] MEDS: budesonide 0.5 mg/2 mL Neb INHALATION (21:02)
[2020-11-29] MEDS: dexamethasone 4 mg/mL INJ 6 MG IVP (23:56)
[2020-11-30] VITALS (17 sets, daily range): BP systolic 115–131; BP diastolic 69–78; PULSE 71–112; RESP 18–22; TEMP 36.5–37.1; O2SAT 86–92
[2020-11-30] MEDS: ipratropium-albuterol 3 mL Neb INHALATION ×5 (03:30→21:33)
[2020-11-30] MEDS: remdesivir 100 MG in sodium chloride 0.9% (100 ml) 80 ML IV (05:31)
[2020-11-30] MEDS: levoFLOXacin 500 mg Tablet PO (05:31)
[2020-11-30 06:14] LABS: Basophils % 0.3 %; Hematocrit 50.2 % (42.0-52.0); Hemoglobin 16.5 g/dL (11.7-16.6); Lymphocytes # 0.4 10^3/uL (0.8-4.8); Lymphocytes % 4.8 %; Mean Corpuscular HGB Conc 32.9 g/dL (30.0-36.0); Mean Corpuscular Hemoglobin 29.4 pg (28.0-34.0); Mean Corpuscular Volume 89.5 fl (80-94); Monocytes # 0.4 10^3/uL (0.2-0.9); Monocytes % 4.2 %; Neutrophils # 8.03 10^3/uL (1.8-7.7); Neutrophils % 90.1 %; Nucleated Red Blood Cells % 0 %; Platelet Count 346 10^3/cmm (130-400); Red Blood Count 5.61 10^6/uL (4.1-5.3); Red Cell Distribution Width 13.2 % (12.1-15.1); White Blood Count 8.9 10^3/uL (4.0-10.0)
[2020-11-30 06:32] LABS: Alanine Aminotransferase 179 U/L (0-41); Albumin Level 3.4 g/dL (3.5-5.2); Alkaline Phosphatase 114 IU/L (40-130); Anion Gap 18.6 (5-19); Aspartate Amino Transferase 70 U/L (0-40); Blood Urea Nitrogen 20 mg/dL (8-23); Calcium 8.7 mg/dL (8.5-10.5); Carbon Dioxide 24 mmol/L (22-29); Chloride 101 mmol/L (98-107); Globulin 3.3 g/dL (1.3-4.6); Glucose 188 mg/dL (65-115); Osmolality Calculated 298 mOsm/kg (285-295); Potassium 3.6 mmol/L (3.5-5.1); Sodium 140 mmol/L (136-145); Total Bilirubin 0.7 mg/dL (0.15-1.2); Total Protein 6.7 g/dL (6.6-8.7)
[2020-11-30 06:39] LABS: NT Pro B Type Natriuretic Pept 114 pg/mL (0-125)
[2020-11-30] MEDS: benzonatate 100 mg Capsule PO ×3 (09:21→20:37)
[2020-11-30] MEDS: buPROPion XL (24 HR) 150 mg Tablet PO (09:21)
[2020-11-30] MEDS: pantoprazole DR 40 mg Tablet PO ×2 (09:21→17:14)
[2020-11-30] MEDS: ascorbic acid 500 mg Tablet 1000 MG PO ×2 (09:21→17:14)
[2020-11-30] MEDS: ferrous gluconate 324 mg Tablet PO ×2 (09:21→17:14)
[2020-11-30] MEDS: zinc gluconate 50 mg Tablet PO (09:21)
[2020-11-30] MEDS: apixaban 5 mg Tablet PO ×2 (09:23→20:37)
[2020-11-30] MEDS: budesonide 0.5 mg/2 mL Neb INHALATION ×2 (09:28→21:33)
[2020-11-30 11:24] LABS: Lactate Dehydrogenase 490 U/L (135-225)
[2020-11-30 11:37] LABS: Ferritin 1659 ng/mL (30-400)
[2020-11-30] MEDS: FUROsemide 10 mg/mL SDV 4mL 40 MG IVP (12:22)
--- NOTE | 2020-11-30 13:26 | P.PN_ITS ---
Subjective Subjective: Interval history: On examination today patient will still not completed high flow because he was saturating down to mid eighties on 2 L high flow nasal cannula. He seems pretty worried and depressed that he will not be able to go home today or tomorrow. States he does not have appetite but is trying to eat as much as he can. Working with incentive spirometry and flutter valve. Denies any nausea, vomiting, headache. Medications: Reviewed: Yes Vitals/I&O/Wt Last Vital Signs Temp 98.4 F 11/30/20 12:00 Pulse 96 11/30/20 12:00 Resp 18 11/30/20 12:00 BP 120/75 11/30/20 12:00 Pulse Ox 90 11/30/20 12:00 11/29/20 11/30/20 11/30/20 22:59 06:59 14:59 Intake Total 200 / 200 Output Total 300 / 650 Balance -300 / -40 200 / 200 Physical Exam Narrative: EXAM NARRATIVE: General: No acute distress, AO x3, depressed, mildly tearful. HEENT: PERRLA, pupils bilaterally equal and reactive Chest: Bilateral bronchial breath sounds, occasional rhonchi present, equal good air entry bilaterally CVS: S1-S2 regular, no murmurs, no tachycardia, no gallops, no rubs Abdomen: Soft, nontender, no organomegaly, bowel sounds present Neuro: No focal deficits, no facial deformity, AO x3, power 5/5 in all limbs Data : 11/30/20 05:23 11/30/20 05:23 Micro: Microbiology 11/28/20 15:20 Gram Stain - Final Sputum - Expectorated Sputum Sputum Culture - Preliminary A&P Assessment and plan (1) Acute hypoxemic respiratory failure due to COVID-19: Status: Acute (2) COVID-19 vaccination not done: Status: Acute (3) Bacterial pneumonia: Status: Acute Additional A&P Information Hypoxia secondary COVID-19 pneumonia with superadded bacterial pneumonia.: Moderate disease. Oxygen supplementation keeping saturation over 88%. Dexamethasone 6 mg daily. Remdesivir to finish a 5-day course. Last day of remdesivir on November 30. Vitamin C, zinc. DuoNebs every 4 hour, budesonide twice daily Pulmonary toilet with incentive spirometry flutter valve. We will monitor inflammatory markers including ferritin, ESR, CRP, D-dimer, fibrinogen. Inflammatory markers continue to trend down. CRP 17.2<<126.4, D- dimer 1.02<1.25<2.1. D-dimer elevated. CTA negative for pulmonary embolism. For now start patient on full dose anticoagulation with Eliquis 5 mg twice daily. Patient will most likely require anticoagulation for 2 weeks on discharge. Will monitor for anemia or blood loss. Procalcitonin elevated. Urine Legionella, bacterial antigen, MRSA swab negative. Prelim report as per micro lab from sputum culture is consistent with gram-negative rods. As patient is requiring high oxygen supplementation will broaden antibiotic spectrum from ceftriaxone to imipenem. Continue Levaquin to finish a 5-day course. 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 We will have to rule out P KWAKU pneumonia and cryptococcal pneumonia. Check cryptococcal serum antigen, Fungitell. Given hypoxia will try to keep patient as negative as possible. Echocardiogram done shows an EF of 60% with grade 1 diastolic dysfunction, normal RV size and function, moderate thickened mitral valve without stenosis, moderately thickened aortic valve without stenosis. IV Lasix 40 mg 1 time. Fluid restriction up to 1800 cc. Strict input output charting, daily weights. Phan catheterization for better input output charting. Depression: Not a known history. Start on low-dose Wellbutrin. Full code. Protonix for PUD prophylaxis. Eliquis will help with DVT prophylaxis. Patient's care discussed in detail with patient's son Mr. Andrés Rutledge over the phone. We discussed that Mr. Martinez has a component of both Covid and possible superimposed bacterial pneumonia and unfortunately patient is requiring high oxygen supplementation. All the questions were answered. I also offered if a family member would want to visit with him that would be appropriate and could be adjusted. Attestations Medical Necessity Statement*: Requires further hospitalization for ARDS secondary COVID-19 pneumonia and superadded bacterial pneumonia Time Spent in Patient Care: Greater than 35 minutes (>than 50% of time spent in counselling and/or direct pt care on unit) . Coding Level of Care Code Acute Pan Helper for [facility] Fwd Diagnoses Acute hypoxemic respiratory failure due to COVID-19 U07.1; J96.01 COVID-19 vaccination not done Z28.9 Bacterial pneumonia J15.9
[2020-11-30 15:22] LABS: C Reactive Protein 28.4 mg/L (0.0-4.9)
[2020-11-30] MEDS: ondansetron 2 mg/ML SDV 2 mL 4 MG IVP (17:53)
[2020-11-30 19:35] LABS: D Dimer 0.95 ug/mIFEU (0-0.59)
[2020-11-30] MEDS: ALPRAZolam 0.5 mg Tablet 0.25 MG PO (20:37)
[2020-11-30 22:03] LABS: Erythrocyte Sedimentation Rate 24 mm/hr (0-10)
[2020-11-30] MEDS: dexamethasone 4 mg/mL INJ 6 MG IVP (23:32)
[2020-12-01] VITALS (15 sets, daily range): BP systolic 113–132; BP diastolic 71–84; PULSE 72–109; RESP 19–32; TEMP 36.4–36.9; O2SAT 87–97
[2020-12-01] MEDS: ipratropium-albuterol 3 mL Neb INHALATION ×7 (00:52→23:51)
[2020-12-01] MEDS: levoFLOXacin 500 mg Tablet PO (05:28)
--- NOTE | 2020-12-01 06:00 | XR_ITS ---
WS: [id number] Portable AP upright chest, 12/01/2020 Clinical Data: covid Comparison: Portable chest, 11/29/2020. Findings: The bilateral pulmonary opacities have increased compared to 11/29/2020.. The heart remains t he same. The aortic arch is tortuous. No nodules, masses or effusions are seen. XR/XR chest 1V portable [id number] Impression: 1. Increase in bilateral pulmonary opacities consistent with worsening pneumoni a. 2. Atherosclerosis.
[2020-12-01 06:05] LABS: D Dimer 0.73 ug/mIFEU (0-0.59)
[2020-12-01 06:18] LABS: Procalcitonin 0.26 ng/mL (0-0.5)
[2020-12-01 06:28] LABS: C Reactive Protein 78.3 mg/L (0.0-4.9)
[2020-12-01 07:42] LABS: Erythrocyte Sedimentation Rate 37 mm/hr (0-10)
[2020-12-01] MEDS: budesonide 0.5 mg/2 mL Neb INHALATION ×2 (08:10→20:00)
[2020-12-01] MEDS: buPROPion XL (24 HR) 150 mg Tablet PO (08:52)
[2020-12-01] MEDS: nystatin 100,000 unit/mL UDC 5 mL 200000 UNIT PO ×4 (08:52→20:43)
[2020-12-01] MEDS: ALPRAZolam 0.5 mg Tablet 0.25 MG PO ×3 (08:53→20:43)
[2020-12-01] MEDS: ascorbic acid 500 mg Tablet 1000 MG PO ×2 (08:53→17:36)
[2020-12-01] MEDS: ferrous gluconate 324 mg Tablet PO ×2 (08:53→17:35)
[2020-12-01] MEDS: zinc gluconate 50 mg Tablet PO (08:53)
[2020-12-01] MEDS: benzonatate 100 mg Capsule PO ×3 (08:56→20:43)
[2020-12-01] MEDS: pantoprazole DR 40 mg Tablet PO ×2 (08:56→18:06)
[2020-12-01] MEDS: apixaban 5 mg Tablet PO (08:57)
[2020-12-01 10:42] LABS: Basophils % 0.1 %; Hematocrit 48.2 % (42.0-52.0); Lymphocytes # 0.3 10^3/uL (0.8-4.8); Lymphocytes % 3.6 %; Mean Corpuscular HGB Conc 33.2 g/dL (30.0-36.0); Mean Corpuscular Hemoglobin 29.6 pg (28.0-34.0); Mean Corpuscular Volume 89.1 fl (80-94); Mean Platelet Volume 9.8 fL (7.4-10.4); Monocytes # 0.4 10^3/uL (0.2-0.9); Neutrophils % 91.6 %; Nucleated Red Blood Cells % 0 %; Platelet Count 369 10^3/cmm (130-400); Red Blood Count 5.41 10^6/uL (4.1-5.3); Red Cell Distribution Width 12.9 % (12.1-15.1); White Blood Count 9.1 10^3/uL (4.0-10.0)
[2020-12-01 10:58] LABS: Alanine Aminotransferase 115 U/L (0-41); Albumin Level 3.2 g/dL (3.5-5.2); Alkaline Phosphatase 99 IU/L (40-130); Anion Gap 18.5 (5-19); Aspartate Amino Transferase 36 U/L (0-40); Blood Urea Nitrogen 16 mg/dL (8-23); Calcium 8.5 mg/dL (8.5-10.5); Carbon Dioxide 24 mmol/L (22-29); Chloride 95 mmol/L (98-107); Globulin 3.3 g/dL (1.3-4.6); Glucose 183 mg/dL (65-115); Osmolality Calculated 284 mOsm/kg (285-295); Potassium 3.5 mmol/L (3.5-5.1); Sodium 134 mmol/L (136-145); Total Bilirubin 0.8 mg/dL (0.15-1.2); Total Protein 6.5 g/dL (6.6-8.7)
[2020-12-01 10:59] LABS: ABG PCO2 36.6 mmHg (35-45); ABG PH Result 7.49 (7.35-7.45); Alveolar-Arterial Oxygen Gradi 65.1 mmHg (5-10); Arterial Blood Gas Hematocrit 51.4 % (42-52); Base Excess ABG 4.5 mmol/L (-2.0-2.0); Blood Gas Allen Test Pos; Blood Gas Operator Identificat glc; Blood Gas Sample Site Radial, right; Blood Gas Sample Type Arterial; Carboxyhemoglobin 0.5 %THgb (0.4-20.1); HCO3 ABG 27.8 mmol/L (22-26); HGB O2 Sat 92.6 % (95-100); Ionized Calcium Level - ABG 1.1 mmol/L (1.1-1.4); Methemoglobin 0.2 % (0.4-1.5); Oxygen Device HAG; Oxygen Saturation ABG 93.2; Potassium Level - ABG 3.2 mmol/L (3.5-5.0); Total Hemoglobin 16.8 g/dL (14-18)
[2020-12-01] MEDS: lanolin oint 7 gm 1 APPLIC TOPICAL (10:59)
[2020-12-01] MEDS: vancomycin 1,250 MG/250 ML PIGGYBACK 250 MG IV ×2 (11:59→23:02)
--- NOTE | 2020-12-01 15:12 | PM.PN ---
Subjective Subjective: Interval history: No complaints overnight. Today morning examination states he feels a little better and energetic. Denies any nausea, vomiting, headache. Working with flutter valve but not with incentive spirometry. We again discussed the need for working with both I-S and Acapella. Currently on 40 L 85% saturating 96%. Looks in a better mood today. Medications: Reviewed: Yes Vitals/I&O/Wt Last Vital Signs Temp 97.6 F 12/01/20 11:22 Pulse 96 12/01/20 11:47 Resp 20 H 12/01/20 11:39 BP 132/84 12/01/20 11:22 Pulse Ox 90 12/01/20 11:39 12/01/20 12/01/20 12/01/20 06:59 14:59 22:59 Intake Total 730 / 1250 690 / 690 Output Total 450 / 450 Balance 280 / 800 690 / 690 Physical Exam Narrative: EXAM NARRATIVE: General: No acute distress, AO x3, HEENT: PERRLA, pupils bilaterally equal and reactive Chest: Bilateral bronchial breath sounds, occasional rhonchi present, equal good air entry bilaterally CVS: S1-S2 regular, no murmurs, no tachycardia, no gallops, no rubs Abdomen: Soft, nontender, no organomegaly, bowel sounds present Neuro: No focal deficits, no facial deformity, AO x3, power 5/5 in all limbs Urinary Catheter Management^: Phan: Cath Placed During This Visit: yes Reason for Continuing Indwelling Catheter: Accurate Measurement of Urinary Output in Critically Ill Patients Urinary Catheter Date of Insertion: 11/30/20 Urinary Catheter Time of Insertion: 19:54 Data : 12/01/20 10:24 12/01/20 10:24 Micro: Microbiology 11/30/20 12:57 Gram Stain - Final Sputum - Expectorated Sputum Sputum Culture - Preliminary 11/28/20 15:20 Gram Stain - Final Sputum - Expectorated Sputum Sputum Culture - Final Pseudomonas aeruginosa A&P Assessment and plan (1) Acute hypoxemic respiratory failure due to COVID-19: Status: Acute (2) COVID-19 vaccination not done: Status: Acute (3) Pseudomonas pneumonia: Status: Acute Additional A&P Information ARDS secondary COVID-19 pneumonia with superadded Pseudomonas pneumonia: Moderate to severe disease. Oxygen supplementation keeping saturation over 88%. Dexamethasone 6 mg daily. Remdesivir to finish a 5-day course. Last day of remdesivir on November 30. Vitamin C, zinc. DuoNebs every 4 hour, budesonide twice daily Pulmonary toilet with incentive spirometry flutter valve. We will monitor inflammatory markers including ferritin, ESR, CRP, D-dimer, fibrinogen. Inflammatory markers continue to trend down. CRP 17.2<<126.4, D-dimer 1.02<1.25<2.1. D-dimer elevated. CTA negative for pulmonary embolism. Full dose Lovenox 1 mg/kg body with every 12 hourly. Patient will most likely require anticoagulation for 2 weeks on discharge. Will monitor for anemia or blood loss. Procalcitonin elevated. Urine Legionella, bacterial antigen, MRSA swab negative. Sputum culture growing Pseudomonas. Sensitivities appreciated. Continue with imipenem and Levaquin. Will need at least 7-day course of antibiotic. Day 2 today off appropriate antibiotic. 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 We will have to rule out P KWAKU pneumonia and cryptococcal pneumonia. Check cryptococcal serum antigen, Fungitell. Given hypoxia will try to keep patient as negative as possible. Echocardiogram done shows an EF of 60% with grade 1 diastolic dysfunction, normal RV size and function, moderate thickened mitral valve without stenosis, moderately thickened aortic valve without stenosis. IV Lasix 40 mg 1 time. Fluid restriction up to 1800 cc. Strict input output charting, daily weights. Phan catheterization for better input output charting. Depression: Not a known history. Start on low-dose Wellbutrin. Full code. Protonix for PUD prophylaxis. Eliquis will help with DVT prophylaxis. Patient's care discussed in detail with patient's son Mr. Andrés Rutledge over the phone. We discussed that Mr. Martinez has a component of both Covid and possible superimposed bacterial pneumonia and unfortunately patient is requiring high oxygen supplementation. All the questions were answered. I also offered if a family member would want to visit with him that would be appropriate and could be adjusted. Attestations Medical Necessity Statement*: Requires further hospitalization for management of ARDS secondary to COVID-19 pneumonia intraoperative Pseudomonas pneumonia Time Spent in Patient Care: Greater than 35 minutes (>than 50% of time spent in counselling and/or direct pt care on unit). Coding Level of Care Code Acute Respiratory Care Program Director for [facility] Darren Diagnoses Acute hypoxemic respiratory failure due to COVID-19 U07.1; J96.01 COVID-19 vaccination not done Z28.9 Pseudomonas pneumonia J15.1
[2020-12-01] MEDS: FUROsemide 10 mg/mL SDV 4mL 40 MG IVP (15:44)
[2020-12-01] MEDS: chlorhexidine gluconate 0.12% Btl 473 mL 15 ML MUCOUS MEM (17:36)
[2020-12-01] MEDS: enoxaparin 80 mg/0.8 mL Syringe SUBCUT (18:06)
[2020-12-01] MEDS: dexamethasone 4 mg/mL INJ 6 MG IVP (23:02)
[2020-12-01] MEDS: ondansetron 2 mg/ML SDV 2 mL 4 MG IVP (23:10)
[2020-12-02] VITALS (16 sets, daily range): BP systolic 97–132; BP diastolic 62–83; PULSE 80–109; RESP 16–28; TEMP 36.4–36.9; O2SAT 86–96
[2020-12-02] MEDS: ipratropium-albuterol 3 mL Neb INHALATION ×5 (03:58→20:07)
[2020-12-02 05:22] LABS: Basophils % 0.1 %; Eosinophils % 0.2 %; Hematocrit 46.1 % (42.0-52.0); Hemoglobin 15.3 g/dL (11.7-16.6); Lymphocytes # 0.3 10^3/uL (0.8-4.8); Lymphocytes % 3.4 %; Mean Corpuscular HGB Conc 33.2 g/dL (30.0-36.0); Mean Corpuscular Hemoglobin 29.6 pg (28.0-34.0); Mean Corpuscular Volume 89.2 fl (80-94); Mean Platelet Volume 10.2 fL (7.4-10.4); Monocytes # 0.3 10^3/uL (0.2-0.9); Neutrophils # 9.03 10^3/uL (1.8-7.7); Neutrophils % 92.9 %; Nucleated Red Blood Cells % 0 %; Platelet Count 363 10^3/cmm (130-400); Red Blood Count 5.17 10^6/uL (4.1-5.3); Red Cell Distribution Width 12.7 % (12.1-15.1); White Blood Count 9.7 10^3/uL (4.0-10.0)
[2020-12-02 05:41] LABS: Alanine Aminotransferase 89 U/L (0-41); Alkaline Phosphatase 96 IU/L (40-130); Aspartate Amino Transferase 30 U/L (0-40); Blood Urea Nitrogen 15 mg/dL (8-23); Calcium 8.3 mg/dL (8.5-10.5); Carbon Dioxide 26 mmol/L (22-29); Chloride 96 mmol/L (98-107); D Dimer 0.82 ug/mIFEU (0-0.59); Globulin 3.4 g/dL (1.3-4.6); Glomerular Filtration Rate 114.3 mL/min (90-130); Glucose 189 mg/dL (65-115); Osmolality Calculated 282 mOsm/kg (285-295); Sodium 133 mmol/L (136-145); Total Bilirubin 0.9 mg/dL (0.15-1.2); Total Protein 6.4 g/dL (6.6-8.7)
[2020-12-02 05:44] LABS: C Reactive Protein 73.6 mg/L (0.0-4.9)
[2020-12-02] MEDS: enoxaparin 80 mg/0.8 mL Syringe SUBCUT ×2 (06:01→17:31)
[2020-12-02] MEDS: levoFLOXacin 500 mg Tablet PO (06:01)
[2020-12-02 06:42] LABS: Erythrocyte Sedimentation Rate 40 mm/hr (0-10)
[2020-12-02] MEDS: pantoprazole DR 40 mg Tablet PO ×2 (08:10→17:26)
[2020-12-02] MEDS: zinc gluconate 50 mg Tablet PO (08:10)
[2020-12-02] MEDS: ALPRAZolam 0.5 mg Tablet 0.25 MG PO ×3 (08:10→21:21)
[2020-12-02] MEDS: ferrous gluconate 324 mg Tablet PO ×2 (08:10→17:26)
[2020-12-02] MEDS: benzonatate 100 mg Capsule PO ×3 (08:10→21:22)
[2020-12-02] MEDS: ascorbic acid 500 mg Tablet 1000 MG PO ×2 (08:15→17:26)
[2020-12-02] MEDS: buPROPion XL (24 HR) 150 mg Tablet PO (08:15)
[2020-12-02] MEDS: chlorhexidine gluconate 0.12% Btl 473 mL 15 ML MUCOUS MEM ×2 (08:16→17:30)
[2020-12-02] MEDS: nystatin 100,000 unit/mL UDC 5 mL 200000 UNIT PO ×4 (08:16→21:21)
[2020-12-02] MEDS: budesonide 0.5 mg/2 mL Neb INHALATION ×2 (08:20→20:07)
[2020-12-02] MEDS: vancomycin 1,250 MG/250 ML PIGGYBACK 250 MG IV ×2 (11:46→23:11)
--- NOTE | 2020-12-02 15:03 | PC.CHAP ---
Pastoral Care Encounter/Spiritual Assessment Type of Contact [] Declined disposition clerk visit [] Patient/Family/Request visit [] Outpatient visit [] Follow-up visit [] Physician referral [] Code/Alert [] Routine visit [] Staff referral [] Actively dying [] Patient sleeping [] Family support [] [] Out of room [] Palliative care [] [] Receiving care in room [] Pre-surgical visit [] Trauma [] Long length of stay [] ICU visit [XX] Other: Isolation Relational/Emotional Strength [] Patient feels connected with others/family/visitors/staff [] Distress [] Loneliness/isolation [] Abandonment Spirituality of Patient [] Person of Roro [] Attends Oriental Orthodox of their Roro [] Believes in Prayer [] Reads Bible or Restorationist materials [] There are Spiritual issues to be addressed Metal Welder Interventions [] Prayer [] Active listening [] Non-anxious presence [] Spiritual/emotional support [] Crisis/trauma care [] Spiritual counseling [] Bereavement support [] Provided bereavement packet [] Provided Bible/devotional materials [] Provided toy/stuffed animal, coloring book to patient or family member [] Provided Communion [] Anointing/Hickman [] Salvation [] Completed spiritual assessment [] Other: Impact on Illness or Injury [] Angry [] Fearful [] Anxious [] Often cries [] Exhaustion [] Unable to work [] Unable to attend bahai [] Unable to walk/stand [] Unable to read [] Unable to drive [] Unable to eat/drink [] Unable to sleep [] Unable to be with family [] Patient intubated [] Other: Summary Time spent with patient
--- NOTE | 2020-12-02 16:07 | P.PN_ITS ---
Subjective Subjective: Interval history: No acute events overnight. Patient denies any nausea, vomiting, headache. Currently on heated high flow 45 L 80% saturating 94%. States he is feeling better. Looks in good spirit. Working well with I-S and Acapella. States he has been instructed to stay to get better. Medications: Reviewed: Yes Vitals/I&O/Wt Last Vital Signs Temp 97.5 F L 12/02/20 12:00 Pulse 97 12/02/20 12:00 Resp 18 12/02/20 12:00 BP 99/65 12/02/20 12:00 Pulse Ox 90 12/02/20 12:00 12/02/20 12/02/20 12/02/20 06:59 14:59 22:59 Intake Total 450 / 1480 350 / 350 Output Total 600 / 2400 Balance -150 / -920 350 / 350 Physical Exam Narrative: EXAM NARRATIVE: General: No acute distress, AO x3, HEENT: PERRLA, pupils bilaterally equal and reactive Chest: Bilateral bronchial breath sounds, occasional rhonchi present, equal good air entry bilaterally CVS: S1-S2 regular, no murmurs, no tachycardia, no gallops, no rubs Abdomen: Soft, nontender, no organomegaly, bowel sounds present Neuro: No focal deficits, no facial deformity, AO x3, power 5/5 in all limbs Urinary Catheter Management^: Phan: Cath Placed During This Visit: yes Reason for Continuing Indwelling Catheter: Required Immobilization for Trauma or Surgery or Anesthesia Urinary Catheter Date of Insertion: 11/30/20 Urinary Catheter Time of Insertion: 19:54 Data : 12/02/20 04:40 12/02/20 04:40 Micro: Microbiology 11/30/20 12:57 Gram Stain - Final Sputum - Expectorated Sputum Sputum Culture - Final 11/26/20 13:52 Bacterial Antigens - Final Urine,Clean Catch 11/28/20 15:20 Gram Stain - Final Sputum - Expectorated Sputum Sputum Culture - Final Pseudomonas aeruginosa A&P Assessment and plan (1) Acute hypoxemic respiratory failure due to COVID-19: Status: Acute (2) COVID-19 vaccination not done: Status: Acute (3) Pseudomonas pneumonia: Status: Acute Additional A&P Information ARDS secondary COVID-19 pneumonia with superadded Pseudomonas pneumonia: Moderate to severe disease. Oxygen supplementation keeping saturation over 88%. Dexamethasone 6 mg daily. Remdesivir to finish a 5-day course. Last day of remdesivir on November 30. Vitamin C, zinc. DuoNebs every 4 hour, budesonide twice daily Pulmonary toilet with incentive spirometry flutter valve. We will monitor inflammatory markers including ferritin, ESR, CRP, D-dimer, fi brinogen. Inflammatory markers continue to trend down. CRP 17.2<<126.4, D-dimer 1.02<1.25<2.1. D-dimer elevated. CTA negative for pulmonary embolism. Full dose Lovenox 1 mg/kg body with every 12 hourly. Patient will most likely require anticoagulation for 2 weeks on discharge. Will monitor for anemia or blood loss. Procalcitonin elevated. Urine Legionella, bacterial antigen, MRSA swab nega tive. Sputum culture growing Pseudomonas. Sensitivities appreciated. Continue with imipenem and Levaquin. Day 3/7 with appropriate antibiotics. 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 We will have to rule out P KWAKU pneumonia and cryptococcal pneumonia. Check cryptococcal serum antigen, Fungitell. Pending. Given hypoxia will try to keep patient as negative as possible. Echocardiogram done shows an EF of 60% with grade 1 diastolic dysfunction, normal RV size and function, moderate thickened mitral valve without stenosis, moderately thickened aortic valve without stenosis. IV Lasix 20 mg 1 time. Fluid restriction up to 1800 cc. Strict input output charting, daily weights. Phan catheterization for better input output charting. Depression: Not a known history. Start on low-dose Wellbutrin. Full code. Protonix for PUD prophylaxis. Eliquis will help with DVT prophylaxis. Patient's care discussed in detail with patient's son Mr. Andrés Rutledge over the phone. We discussed that Mr. Martinez has a component of both Covid and possible superimposed bacterial pneumonia and unfortunately patient is requiring high oxygen supplementation. All the questions were answered. [facility] also [facility] would want to visit with him that would be appropriate and could be adjusted. Attestations Medical Necessity Statement*: Hospitalization for management of severe hypoxia/ARDS secondary COVID-19 pneumonia, superadded Pseudomonas pneumonia Time Spent in Patient Care: Greater than 35 minutes (>than 50% of time spent in counselling and/or direct pt care on unit) . Coding Level of Care Code Acute Team Coordinator for [facility] Fwd Diagnoses Acute hypoxemic respiratory failure due to COVID-19 U07.1; J96.01 COVID-19 vaccination not done Z28.9 Pseudomonas pneumonia J15.1
[2020-12-02] MEDS: FUROsemide 10 mg/mL SDV 2mL 20 MG IVP (17:26)
[2020-12-02 22:28] LABS: Vancomycin Trough 13.6 ug/mL (10-15)
[2020-12-02] MEDS: dexamethasone 4 mg/mL INJ 6 MG IVP (23:11)
[2020-12-03] VITALS (13 sets, daily range): BP systolic 99–134; BP diastolic 65–72; PULSE 69–98; RESP 16–22; TEMP 36.6–36.9; O2SAT 90–95
[2020-12-03] MEDS: ipratropium-albuterol 3 mL Neb INHALATION ×6 (00:30→22:12)
--- NOTE | 2020-12-03 06:00 | XRR_ITS ---
PROCEDURE INFORMATION: Exam: XR Chest Exam date and time: 12/03/2020 6:00 AM Age: 60 years old Clinical indication: Shortness of breath; Additional info: Covid TECHNIQUE: Imaging protocol: XR of the chest. Views: 1 view. Total images: 1 COMPARISON: CR XR chest 1V portable [id number] 12/01/2020 6:51 AM FINDINGS: Lungs: Bilateral pulmonary opacities are again noted with the left-sided opacities showing interval improvement. Pleural spaces: Unremarkable. No pleural effusion. No pneumothorax. Heart/Mediastinum: Unremarkable. No cardiomegaly. Bones/joints: Unremarkable. XR/XR chest 1V portable [id number] IMPRESSION: Bilateral pulmonary opacities are again noted with the left-sided opacities showing interval improvement.
[2020-12-03] MEDS: levoFLOXacin 500 mg Tablet PO (06:18)
[2020-12-03] MEDS: enoxaparin 80 mg/0.8 mL Syringe SUBCUT ×2 (06:18→17:03)
[2020-12-03 07:08] LABS: Eosinophils # 0.1 10^3/uL (0.0-0.8); Eosinophils % 0.8 %; Hematocrit 44.4 % (42.0-52.0); Hemoglobin 14.8 g/dL (11.7-16.6); Lymphocytes # 0.4 10^3/uL (0.8-4.8); Mean Corpuscular HGB Conc 33.3 g/dL (30.0-36.0); Mean Corpuscular Hemoglobin 30.1 pg (28.0-34.0); Mean Corpuscular Volume 90.2 fl (80-94); Monocytes # 0.3 10^3/uL (0.2-0.9); Monocytes % 3.5 %; Neutrophils # 8.03 10^3/uL (1.8-7.7); Neutrophils % 90.7 %; Nucleated Red Blood Cells % 0 %; Platelet Count 408 10^3/cmm (130-400); Red Blood Count 4.92 10^6/uL (4.1-5.3); Red Cell Distribution Width 12.6 % (12.1-15.1); White Blood Count 8.9 10^3/uL (4.0-10.0)
[2020-12-03 07:27] LABS: C Reactive Protein 53.2 mg/L (0.0-4.9)
[2020-12-03 07:32] LABS: Alanine Aminotransferase 60 U/L (0-41); Albumin Level 2.9 g/dL (3.5-5.2); Alkaline Phosphatase 80 IU/L (40-130); Anion Gap 14.6 (5-19); Aspartate Amino Transferase 27 U/L (0-40); Blood Urea Nitrogen 21 mg/dL (8-23); Calcium 8.2 mg/dL (8.5-10.5); Carbon Dioxide 28 mmol/L (22-29); Chloride 98 mmol/L (98-107); Glomerular Filtration Rate 114.3 mL/min (90-130); Glucose 145 mg/dL (65-115); Osmolality Calculated 288 mOsm/kg (285-295); Potassium 4.6 mmol/L (3.5-5.1); Sodium 136 mmol/L (136-145); Total Bilirubin 0.8 mg/dL (0.15-1.2); Total Protein 5.9 g/dL (6.6-8.7)
[2020-12-03] MEDS: chlorhexidine gluconate 0.12% Btl 473 mL 15 ML MUCOUS MEM ×2 (08:02→17:07)
[2020-12-03] MEDS: ALPRAZolam 0.5 mg Tablet 0.25 MG PO ×3 (08:03→21:10)
[2020-12-03] MEDS: pantoprazole DR 40 mg Tablet PO ×2 (08:03→17:04)
[2020-12-03] MEDS: buPROPion XL (24 HR) 150 mg Tablet PO (08:03)
[2020-12-03] MEDS: benzonatate 100 mg Capsule PO ×3 (08:03→21:13)
[2020-12-03] MEDS: ferrous gluconate 324 mg Tablet PO ×2 (08:03→17:04)
[2020-12-03] MEDS: zinc gluconate 50 mg Tablet PO (08:03)
[2020-12-03] MEDS: nystatin 100,000 unit/mL UDC 5 mL 200000 UNIT PO ×4 (08:03→21:13)
[2020-12-03] MEDS: ascorbic acid 500 mg Tablet 1000 MG PO ×2 (08:05→17:04)
[2020-12-03] MEDS: budesonide 0.5 mg/2 mL Neb INHALATION ×2 (08:14→22:12)
[2020-12-03 08:19] LABS: Erythrocyte Sedimentation Rate 39 mm/hr (0-10)
[2020-12-03] MEDS: vancomycin 1,250 MG/250 ML PIGGYBACK 250 MG IV ×2 (10:36→23:07)
--- NOTE | 2020-12-03 13:06 | P.PN_ITS ---
Subjective Subjective: Interval history: No acute events overnight. Patient doing better today. Oxygen sat supplementation wean down to 45 L 60% while he saturating more than 90%. States he is feeling better. Sitting in chair today. Denies any nausea, vomiting, headache. Labs appreciated. Medications: Reviewed: Yes Vitals/I&O/Wt Last Vital Signs Temp 98.1 F 12/03/20 11:35 Pulse 91 12/03/20 11:37 Resp 18 12/03/20 11:37 BP 134/65 12/03/20 11:35 Pulse Ox 90 12/03/20 11:37 12/02/20 12/03/20 12/03/20 22:59 06:59 14:59 Intake Total 100 / 450 450 / 900 590 / 590 Output Total 1200 / 1200 300 / 1500 Balance -1100 / -750 150 / -600 590 / 590 Physical Exam Narrative: EXAM NARRATIVE: General: No acute distress, AO x3, HEENT: PERRLA, pupils bilaterally equal and reactive Chest: Bilateral bronchial breath sounds, occasional rhonchi present, equal good air entry bilaterally CVS: S1-S2 regular, no murmurs, no tachycardia, no gallops, no rubs Abdomen: Soft, nontender, no organomegaly, bowel sounds present Neuro: No focal deficits, no facial deformity, AO x3, power 5/5 in all limbs Urinary Catheter Management^: Phan: Cath Placed During This Visit: yes Reason for Continuing Indwelling Catheter: Required Immobilization for Trauma or Surgery or Anesthesia Urinary Catheter Date of Insertion: 11/30/20 Urinary Catheter Time of Insertion: 19:54 Data : 12/03/20 05:58 12/03/20 05:58 Micro: Microbiology 12/01/20 15:55 Urine Culture - Preliminary Urine,Clean Catch 11/30/20 12:57 Gram Stain - Final Sputum - Expectorated Sputum Sputum Culture - Final Preliminary micro results at discharge 12/01/20 15:55 Urine Culture - Preliminary Urine,Clean Catch Microbiology 12/01/20 15:55 Urine,Clean Catch Urine Culture - Preliminary 11/30/20 12:57 Sputum - Expectorated Sputum Gram Stain - Final 11/30/20 12:57 Sputum - Expectorated Sputum Sputum Culture - Final 11/26/20 13:52 Urine,Clean Catch Bacterial Antigens - Final 11/28/20 15:20 Sputum - Expectorated Sputum Gram Stain - Final 11/28/20 15:20 Sputum - Expectorated Sputum Sputum Culture - Final Pseudomonas aeruginosa 11/26/20 00:30 Nose MRSA Culture - Final A&P Assessment and plan (1) Acute hypoxemic respiratory failure due to COVID-19: Status: Acute (2) COVID-19 vaccination not done: Status: Acute (3) Pseudomonas pneumonia: Status: Acute Additional A&P Information ARDS secondary COVID-19 pneumonia with superadded Pseudomonas pneumonia: Moderate to severe disease. Oxygen supplementation keeping saturation over 88%. Dexamethasone 6 mg daily. Remdesivir to finish a 5-day course. Last day of remdesivir on November 30. Vitamin C, zinc. DuoNebs every 4 hour, budesonide twice daily Pulmonary toilet with incentive spirometry flutter valve. We will monitor inflammatory markers including ferritin, ESR, CRP, D-dimer, fibrinogen. Inflammatory markers continue to trend down. CRP 17.2<<126.4, D- dimer 1.02<1.25<2.1. D-dimer elevated. CTA negative for pulmonary embolism. Full dose Lovenox 1 mg/kg body with every 12 hourly. Patient will most likely require anticoagulation for 2 weeks on discharge. Will monitor for anemia or blood loss. Procalcitonin elevated. Urine Legionella, bacterial antigen, MRSA swab negative. Sputum culture growing Pseudomonas. Sensitivities appreciated. Continue with imipenem and Levaquin. Day 4/7 with appropriate antibiotics. 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 We will have to rule out P KWAKU pneumonia and cryptococcal pneumonia. Check cryptococcal serum antigen, Fungitell. Pending. Given hypoxia will try to keep patient as negative as possible. Echocardiogram done shows an EF of 60% with grade 1 diastolic dysfunction, normal RV size and function, moderate thickened mitral valve without stenosis, moderately thickened aortic valve without stenosis. Hold diuresis for today Fluid restriction upto 1800 cc. Strict input output charting, daily weights. Phan catheterization for better input output charting. Depression: Resolving. Continue with Wellbutrin. Full code. Protonix for PUD prophylaxis. Eliquis will help with DVT prophylaxis. Patient's care discussed in detail with patient's son Mr. Andrés Rutledge over the phone. We discussed that Mr. Martinez has a component of both Covid and possible superimposed bacterial pneumonia and unfortunately patient is requiring high oxygen supplementation. All the questions were answered. I also offered if a family member would want to visit with him that would be appropriate and could be adjusted. Attestations Medical Necessity Statement*: Requires further hospitalization for management of COVID-19 pneumonia with superadded Pseudomonas pneumonia leading to severe hypoxia. Time Spent in Patient Care: Greater than 35 minutes (>than 50% of time spent in counselling and/or direct pt care on unit) . Coding Level of Care Code Acute Boiling House Hand for [facility] Fwd Diagnoses Acute hypoxemic respiratory failure due to COVID-19 U07.1; J96.01 COVID-19 vaccination not done Z28.9 Pseudomonas pneumonia J15.1
[2020-12-03] MEDS: FUROsemide 10 mg/mL SDV 2mL 20 MG IVP (21:13)
[2020-12-04] VITALS (17 sets, daily range): BP systolic 97–105; BP diastolic 65–70; PULSE 65–90; RESP 16–24; TEMP 36.3–36.9; O2SAT 89–95
[2020-12-04] MEDS: ipratropium-albuterol 3 mL Neb INHALATION ×6 (00:26→20:47)
[2020-12-04] MEDS: dexamethasone 4 mg/mL INJ 6 MG IVP ×2 (01:23→23:40)
[2020-12-04 05:29] LABS: ABG PCO2 36.3 mmHg (35-45); ABG PH Result 7.53 (7.35-7.45); Arterial Blood Gas Hematocrit 48.6 % (42-52); Base Excess ABG 7.3 mmol/L (-2.0-2.0); Blood Gas Allen Test Pos; Blood Gas Sample Type Arterial; Carboxyhemoglobin 0.8 %THgb (0.4-20.1); HCO3 ABG 30.2 mmol/L (22-26); HGB O2 Sat 85.5 % (95-100); Ionized Calcium Level - ABG 1.2 mmol/L (1.1-1.4); Methemoglobin 0.7 % (0.4-1.5); Oxygen Saturation ABG 86.8; PO2 ABG 64.9 mmHg (80.0-100.0); Potassium Level - ABG 4.3 mmol/L (3.5-5.0); Total Hemoglobin 15.9 g/dL (14-18)
[2020-12-04 05:30] LABS: Alveolar-Arterial Oxygen Gradi 36.8 mmHg (5-10); Oxygen Device HAG
[2020-12-04 07:09] LABS: Basophils % 0.1 %; Eosinophils # 0.1 10^3/uL (0.0-0.8); Eosinophils % 1.4 %; Hemoglobin 15.1 g/dL (11.7-16.6); Lymphocytes # 0.3 10^3/uL (0.8-4.8); Lymphocytes % 3.5 %; Mean Corpuscular HGB Conc 34.3 g/dL (30.0-36.0); Mean Corpuscular Hemoglobin 30.6 pg (28.0-34.0); Mean Corpuscular Volume 89.1 fl (80-94); Mean Platelet Volume 10.3 fL (7.4-10.4); Monocytes # 0.5 10^3/uL (0.2-0.9); Monocytes % 4.7 %; Neutrophils # 8.68 10^3/uL (1.8-7.7); Neutrophils % 89.5 %; Nucleated Red Blood Cells % 0 %; Platelet Count 410 10^3/cmm (130-400); Red Blood Count 4.94 10^6/uL (4.1-5.3); Red Cell Distribution Width 12.4 % (12.1-15.1); White Blood Count 9.7 10^3/uL (4.0-10.0)
[2020-12-04 07:37] LABS: Alanine Aminotransferase 43 U/L (0-41); Albumin Level 2.8 g/dL (3.5-5.2); Alkaline Phosphatase 89 IU/L (40-130); Anion Gap 15.3 (5-19); Aspartate Amino Transferase 24 U/L (0-40); Blood Urea Nitrogen 17 mg/dL (8-23); Calcium 8.3 mg/dL (8.5-10.5); Carbon Dioxide 26 mmol/L (22-29); Chloride 96 mmol/L (98-107); Glomerular Filtration Rate 114.3 mL/min (90-130); Glucose 140 mg/dL (65-115); Osmolality Calculated 280 mOsm/kg (285-295); Potassium 4.3 mmol/L (3.5-5.1); Sodium 133 mmol/L (136-145); Total Bilirubin 0.8 mg/dL (0.15-1.2); Total Protein 5.8 g/dL (6.6-8.7)
[2020-12-04] MEDS: budesonide 0.5 mg/2 mL Neb INHALATION ×2 (07:45→20:47)
[2020-12-04 07:49] LABS: Procalcitonin 0.14 ng/mL (0-0.5)
[2020-12-04] MEDS: nystatin 100,000 unit/mL UDC 5 mL 200000 UNIT PO ×4 (08:15→20:07)
[2020-12-04] MEDS: enoxaparin 80 mg/0.8 mL Syringe SUBCUT ×2 (08:15→18:29)
[2020-12-04] MEDS: pantoprazole DR 40 mg Tablet PO ×2 (08:16→18:29)
[2020-12-04] MEDS: zinc gluconate 50 mg Tablet PO (08:16)
[2020-12-04] MEDS: ascorbic acid 500 mg Tablet 1000 MG PO ×2 (08:16→18:29)
[2020-12-04] MEDS: ferrous gluconate 324 mg Tablet PO ×2 (08:16→18:29)
[2020-12-04] MEDS: ALPRAZolam 0.5 mg Tablet 0.25 MG PO ×3 (08:16→20:06)
[2020-12-04] MEDS: benzonatate 100 mg Capsule PO ×3 (08:16→20:07)
[2020-12-04] MEDS: chlorhexidine gluconate 0.12% Btl 473 mL 15 ML MUCOUS MEM ×2 (08:16→18:29)
--- NOTE | 2020-12-04 08:24 | PC.NURSE ---
Patient sitting up in chair, denies pain this morning, reports I feel better Eating breakfast. Call light in reach. linens changed.
[2020-12-04] MEDS: buPROPion XL (24 HR) 150 mg Tablet PO (09:09)
--- NOTE | 2020-12-04 09:11 | PC.NURSE ---
Assisted patient back to bed, denies pain or needs, oxygen saturation 92% with ambulation, 94% while resting in bed.
[2020-12-04] MEDS: vancomycin 1,250 MG/250 ML PIGGYBACK 250 MG IV ×2 (11:16→23:41)
--- NOTE | 2020-12-04 15:12 | PM.PN ---
Subjective Subjective: Interval history: No current overnight. Patient states he is committed better. On examination sleeping comfortably. Working well with incentive spirometry and flutter valve. Down to 9 L high flow nasal cannula saturating 90%. Denies any new complaints. Medications: Reviewed: Yes Vitals/I&O/Wt Last Vital Signs Temp 97.5 F L 12/04/20 11:20 Pulse 83 12/04/20 11:26 Resp 17 12/04/20 11:26 BP 105/67 12/04/20 11:20 Pulse Ox 95 12/04/20 11:26 12/04/20 12/04/20 12/04/20 06:59 14:59 22:59 Intake Total 100 / 1270 820 / 820 Output Total 1200 / 2100 Balance -1100 / -830 820 / 820 Physical Exam Narrative: EXAM NARRATIVE: General: No acute distress, AO x3, HEENT: PERRLA, pupils bilaterally equal and reactive Chest: Bilateral bronchial breath sounds, occasional rhonchi present, equal good air entry bilaterally CVS: S1-S2 regular, no murmurs, no tachycardia, no gallops, no rubs Abdomen: Soft, nontender, no organomegaly, bowel sounds present Neuro: No focal deficits, no facial deformity, AO x3, power 5/5 in all limbs Urinary Catheter Management^: Phan: Cath Placed During This Visit: yes Reason for Continuing Indwelling Catheter: Other Urinary Catheter Date of Insertion: 11/30/20 Urinary Catheter Time of Insertion: 19:54 Data : 12/04/20 05:51 12/04/20 05:51 Micro: Microbiology 12/01/20 15:55 Urine Culture - Final Urine,Clean Catch A&P Assessment and plan (1) Acute hypoxemic respiratory failure due to COVID-19: Status: Acute (2) COVID-19 vaccination not done: Status: Acute (3) Pseudomonas pneumonia: Status: Acute Additional A&P Information ARDS secondary COVID-19 pneumonia with superadded Pseudomonas pneumonia: Moderate to severe disease. Oxygen supplementation keeping saturation over 88%. Dexamethasone 6 mg daily. Remdesivir to finish a 5-day course. Last day of remdesivir on November 30. Vitamin C, zinc. DuoNebs every 4 hour, budesonide twice daily Pulmonary toilet with incentive spirometry flutter valve. We will monitor inflammatory markers including ferritin, ESR, CRP, D-dimer, fibrinogen. Inflammatory markers continue to trend down. CRP 17.2<<126.4, D-dimer 1.02<1.25<2.1. D-dimer elevated. CTA negative for pulmonary embolism. Full dose Lovenox 1 mg/kg body with every 12 hourly. Patient will most likely require anticoagulation for 2 weeks on discharge. Will monitor for anemia or blood loss. Procalcitonin elevated. Urine Legionella, bacterial antigen, MRSA swab negative. Sputum culture growing Pseudomonas. Sensitivities appreciated. Continue with imipenem and Levaquin. Day 5/7 with appropriate antibiotics. Patient works at a [employer]. We will have to rule out P KWAKU pneumonia and cryptococcal pneumonia. Check cryptococcal serum antigen, Fungitell. Pending. Given hypoxia will try to keep patient as negative as possible. Echocardiogram done shows an EF of 60% with grade 1 diastolic dysfunction, normal RV size and function, moderate thickened mitral valve without stenosis, moderately thickened aortic valve without stenosis. Hold diuresis for today Fluid restriction upto 1800 cc. Strict input output charting, daily weights. Phan catheterization for better input output charting. Depression: Resolving. Continue with Wellbutrin. Full code. Protonix for PUD prophylaxis. Eliquis will help with DVT prophylaxis. Patient's care discussed in detail with patient's son Mr. Andrés Rutledge over the phone. We discussed that Mr. Martinez has a component of both Covid and possible superimposed bacterial pneumonia and unfortunately patient is requiring high oxygen supplementation. All the questions were answered. I also offered if a family member would want to visit with him that would be appropriate and could be adjusted. Plan for the day: Continue with incentive spirometry, flutter valve, antibiotics for Pseudomonas pneumonia for 2 more days. Continue to wean oxygen keeping saturation over 88%. Attestations Medical Necessity Statement*: Patient for management of hypoxia secondary COVID-19 pneumonia, superadded Pseudomonas pneumonia Time Spent in Patient Care: Greater than 35 minutes (>than 50% of time spent in counselling and/or direct pt care on unit). Coding Level of Care Code Acute [facility] for [facility] Fwd Diagnoses Acute hypoxemic respiratory failure due to COVID-19 U07.1; J96.01 COVID-19 vaccination not done Z28.9 Pseudomonas pneumonia J15.1
[2020-12-04 17:20] LABS: Glucose Point of Care 108 mg/dL (70-110)
[2020-12-05] VITALS (11 sets, daily range): BP systolic 99–154; BP diastolic 62–107; PULSE 82–92; RESP 16–23; TEMP 36.4–37.2; O2SAT 80–94
[2020-12-05] MEDS: ipratropium-albuterol 3 mL Neb INHALATION ×3 (00:32→08:03)
[2020-12-05] MEDS: enoxaparin 80 mg/0.8 mL Syringe SUBCUT (06:00)
[2020-12-05 06:43] LABS: Basophils % 0.1 %; Eosinophils % 0.4 %; Hematocrit 43.6 % (42.0-52.0); Hemoglobin 14.6 g/dL (11.7-16.6); Lymphocytes # 0.4 10^3/uL (0.8-4.8); Lymphocytes % 4.8 %; Mean Corpuscular HGB Conc 33.5 g/dL (30.0-36.0); Mean Corpuscular Hemoglobin 29.9 pg (28.0-34.0); Mean Corpuscular Volume 89.3 fl (80-94); Mean Platelet Volume 10.1 fL (7.4-10.4); Monocytes # 0.3 10^3/uL (0.2-0.9); Monocytes % 3.2 %; Neutrophils # 7.33 10^3/uL (1.8-7.7); Neutrophils % 90.5 %; Nucleated Red Blood Cells % 0 %; Platelet Count 390 10^3/cmm (130-400); Red Blood Count 4.88 10^6/uL (4.1-5.3); Red Cell Distribution Width 12.4 % (12.1-15.1); White Blood Count 8.1 10^3/uL (4.0-10.0)
[2020-12-05 07:16] LABS: Alanine Aminotransferase 41 U/L (0-41); Albumin Level 2.7 g/dL (3.5-5.2); Alkaline Phosphatase 85 IU/L (40-130); Anion Gap 13.4 (5-19); Aspartate Amino Transferase 26 U/L (0-40); Blood Urea Nitrogen 14 mg/dL (8-23); C Reactive Protein 31.2 mg/L (0.0-4.9); Calcium 7.9 mg/dL (8.5-10.5); Carbon Dioxide 25 mmol/L (22-29); Chloride 99 mmol/L (98-107); Globulin 3.1 g/dL (1.3-4.6); Glomerular Filtration Rate 136.5 mL/min (90-130); Glucose 148 mg/dL (65-115); Osmolality Calculated 279 mOsm/kg (285-295); Potassium 4.4 mmol/L (3.5-5.1); Sodium 133 mmol/L (136-145); Total Bilirubin 0.7 mg/dL (0.15-1.2); Total Protein 5.8 g/dL (6.6-8.7)
[2020-12-05 07:55] LABS: Erythrocyte Sedimentation Rate 42 mm/hr (0-10)
[2020-12-05] MEDS: budesonide 0.5 mg/2 mL Neb INHALATION (08:03)
[2020-12-05] MEDS: nystatin 100,000 unit/mL UDC 5 mL 200000 UNIT PO ×3 (09:06→16:33)
[2020-12-05] MEDS: buPROPion XL (24 HR) 150 mg Tablet PO (09:06)
[2020-12-05] MEDS: zinc gluconate 50 mg Tablet PO (09:06)
[2020-12-05] MEDS: ALPRAZolam 0.5 mg Tablet 0.25 MG PO ×2 (09:06→16:34)
[2020-12-05] MEDS: ferrous gluconate 324 mg Tablet PO ×2 (09:06→17:22)
[2020-12-05] MEDS: ascorbic acid 500 mg Tablet 1000 MG PO ×2 (09:06→17:22)
[2020-12-05] MEDS: pantoprazole DR 40 mg Tablet PO ×2 (09:07→17:22)
[2020-12-05] MEDS: benzonatate 100 mg Capsule PO ×2 (09:07→16:34)
[2020-12-05] MEDS: chlorhexidine gluconate 0.12% Btl 473 mL 15 ML MUCOUS MEM ×2 (09:09→17:22)
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
--- NOTE | 2020-12-05 17:46 | PC.RESP ---
RT Shift Note Frequent safety and respiratory rounds continue. Orders completed as indicated. Patient monitored pre and post treatments throughout shift. Patient did tolerate treatments appropriately. Condition improved. Patient and/or parts representative educated on respiratory treatment and medications. Patient and/or parts representative verbalized understanding. Will continue to monitor patient progress.
--- NOTE | 2020-12-05 18:43 | PC.NURSE ---
late entry from 1000: Verbal order given to remove catheter. Patient tolerated well. Tip intact.
--- NOTE | 2020-12-05 18:44 | PC.NURSE ---
Discharge Note Patient discharged to home via private vehicle accompanied by son. Discharge instructions reviewed with patient and/or customer support representative. Mobile pharmacy medications and/or prescriptions provided. Belongings/home medications returned.
--- NOTE | 2020-12-06 13:15 | PC.SOCIAL ---
discharge follow up call made, spoke with patient. patient is aware of follow up appointment with Zafar Lazcano. Patient declines wanting to follow up with [facility]. He reports he doesn't have depression. Patient is using O2 and tolerating well. New prescriptions were brought to pt prior to discharge, taking as prescribed. patient denies any needs or questions.
[2020-12-06 18:37] LABS: Blood Gas Operator Identificat TB
[2020-12-08 20:27] LABS: Fungitell 1-3-B Glucan Assay <31 pg/mL; Interpretation NEGATIVE
== END 2020-12-05 18:46 | disposition home or self-care (01) | DRG 177 ==
LOC: ER 18:00 → MEDSURG 18:49
PROVIDERS: Hospitalist; Physician Assistant; Student in an Organized Health Care Education/Training Program; Admitting Provider Hospitalist; Emergency Provider Family Medicine; Visit Provider Internal Medicine
DX: U07.1 COVID-19 (principal); J12.82 Pneumonia due to coronavirus disease 2019; J80 Acute respiratory distress syndrome; J15.1 Pneumonia due to Pseudomonas; N40.0 Benign prostatic hyperplasia without lower urinary tract symptoms; K21.9 Gastro-esophageal reflux disease without esophagitis; F17.220 Nicotine dependence, chewing tobacco, uncomplicated; F43.21 Adjustment disorder with depressed mood
CPT/HCPCS: 36415; 36416; 36600; 51702; 71045; 71275; 80051; 80053; 80202; 81001; 82330; 82550; 82728; 82803; 82805; 82962; 83540; 83550; 83605; 83615; 83735; 83880; 84100; 84145; 84443; 84484; 85025; 85378; 85384; 85651; 85730; 86140; 86403; 87070; 87077; 87086; 87186; 87205; 87327; 87426; 87449; 87635; 87641; 87804; 93005; 93306; 94640; 96372; 97116; 97161; 97165; 97530; 99285; J0696; J0743; J1100; J1650; J1940; J2405; J3370; J3490; J3535; J7626; Q9967

== ENCOUNTER → 2020-12-12 14:51 | Outpatient (BNVA) | payer MEDICAID, SELFPAY | PROVIDERS: PCP Nurse Practitioner; Visit Provider Nurse Practitioner Family | DX: R97.20 Elevated prostate specific antigen [PSA] (principal); R39.9 Unspecified symptoms and signs involving the genitourinary system; R33.9 Retention of urine, unspecified | CPT/HCPCS: 81003; 84153; 87086 ==

== ENCOUNTER → 2020-12-20 11:04 | Outpatient (BNVA) | payer OTHER, SELFPAY | PROVIDERS: PCP Nurse Practitioner; Visit Provider Nurse Practitioner | DX: U07.1 COVID-19 (principal); J12.82 Pneumonia due to coronavirus disease 2019 | CPT/HCPCS: 71046 ==

== ENCOUNTER → 2021-03-01 16:16 | Outpatient (BNVA) | payer MEDICAID, SELFPAY | PROVIDERS: PCP Nurse Practitioner; Visit Provider Urology | DX: R33.9 Retention of urine, unspecified (principal) | CPT/HCPCS: 81003 ==

== ENCOUNTER → 2021-08-24 12:14 | Outpatient (BNVA) | payer MEDICAID, SELFPAY | PROVIDERS: PCP Nurse Practitioner; Visit Provider Internal Medicine Cardiovascular Disease | DX: R06.02 Shortness of breath (principal); R06.00 Dyspnea, unspecified; I50.33 Acute on chronic diastolic (congestive) heart failure; R07.9 Chest pain, unspecified; I44.7 Left bundle-branch block, unspecified; F17.200 Nicotine dependence, unspecified, uncomplicated | CPT/HCPCS: 80048; 83880; 99204 ==

== ENCOUNTER 2021-09-05 13:17 | Outpatient (CLI) | payer MEDICAID, SELFPAY | END 2021-09-05 13:18 | disposition home or self-care (01) | LOC: LAB 13:20 | PROVIDERS: PCP Nurse Practitioner; Visit Provider Urology | DX: R97.20 Elevated prostate specific antigen [PSA] (principal); R33.9 Retention of urine, unspecified; N52.9 Male erectile dysfunction, unspecified | CPT/HCPCS: 36415; 51798; 81003; 84153; 99214 ==

== ENCOUNTER 2021-09-29 06:47 | Outpatient (CLI) | payer MEDICAID, SELFPAY ==
[2021-09-29 07:09] VITALS: BMI 25.4
--- NOTE | 2021-09-29 07:27 | ECG_ITS ---
[facility] Test Date: 2021-09-29 Pat Name: Aamir Martinez Department: Room: Gender: Male Trimmer Hand: Meg Siddiqi : 1960 Requested By: Gonsalo Nur Order Number: [id number] Fauzia MD: Gonsalo Nur M.D. Interpretive Statements NAME OF STUDY: LEXISCAN SESTAMIBI STRESS TEST INDICATION: lbbb, PROCEDURE: At the baseline, the EKG revealed normal sinus rhythm with left bundle branch block pattern. The baseline blood pressure was 140/82 mm Hg with a heart rate of 65 beats/min. Lexiscan was infused over a period of 20 seconds. A total of 0.4 milligrams of Lexiscan was infused. The stress phase was continued for a total of 5 minutes. Heart rate at the end of the stress phase was 89 with a blood pressure 122/73. The EKG at the peak infusion revealed no significant changes. Sestamibi was injected 20 seconds after the Lexiscan infusion. Blood pressure at the end of the recovery phase was 160/80 with a heart rate of 87 per minute. CONCLUSION: 1. No significant EKG changes with the LexiScan infusion 2. No LexiScan induced chest pain or cardiac arrhythmia 3. Normal blood pressure and heart rate response 4. Sestamibi/sestamibi perfusion scan pending; see separate report. Electronically Signed On 10-08-2021 18:41:49 CDT by Gonsalo Nur M.D. [email or web address]
--- NOTE | 2021-09-29 07:28 | NMCV_ITS ---
NM dasha perf SPECT r/s* [id number] Aamir Martinez Age: 61 Gender: M : 1960 Exam Date: 09/29/2021 08:41 Ordering Phys: Gonsalo Nur MD ([email or web address]) Technologist: RAGHAV Hall Exam Location: [facility] Indications: CHEST PAIN STRESS TEST Please see separate stress test report in [facility] for full findings IMAGE PROTOCOL Rest/Stress 1 Lexiscan Day Radiopharmaceutical Dose (mCi) Administration Site Administered by Rest: Tc-99m 10.7 IV RAGHAV [place] Sestamibi Stress:Tc-99m 33.0 IV RAGHAV [place]on Sestamibi Rest: 29-Sep-2021 60 Discovery 630 Stress: 29-Sep-2021 30 Discovery 630 0.4mg Lexiscan. Images obtained in supine and prone position. SPECT RESULTS Technical Quality: Excellent Raw Data Analysis: Normal Image Corrections: No attenuation or motion correction applied Summed Stress Score: 13 Summed Rest Score: 15 Summed Difference Score: 2 PERFUSION FINDINGS Moderate to large area of moderately decreased tracer uptake in the mid anteroseptal, inferoseptal, inferior and all apical segments with subtle areas of reversibility in the mid inferoseptal and mid inferior regions FUNCTIONAL RESULTS (calculated via Gated SPECT) Stress Image LV EF (%): 69 Stress EDV (mL):101 TID: 1 Stress ESV (mL):31 FUNCTIONAL FINDINGS: Segmental wall motion analysis revealing no gross wall motion abnormalities IMPRESSIONS 1. Myocardial perfusion imaging revealing moderate to large areas of persistent decreased tracer uptake in the anteroseptal, inferoseptal, inferior and apical regions with some reversibility suggesting myocardial scarring in the distribution of the left anterior descending and right coronary arteries with some areas of fidel-infarction ischemia. 2. Normal LV ejection fraction 69%. 3. LV wall motion analysis revealing no gross wall motion normalities. 4. Normal LV volume. No similar previous studies are available for comparison Dr Gonsalo Nur MD FACC (Electronically Signed) Final Date: 03 October 2021 19:37 S
[2021-09-29 09:29] VITALS: BP 160/80; PULSE 87
[2021-09-29] MEDS: regadenoson 0.4 Mg/5 ml Syringe IVP (09:29)
== END 2021-09-29 06:48 | disposition home or self-care (01) ==
LOC: CDL 06:49
PROVIDERS: PCP Nurse Practitioner; Visit Provider Internal Medicine Cardiovascular Disease
DX: R07.89 Other chest pain (principal)
CPT/HCPCS: 78452; 93017; A9500; J2785

== ENCOUNTER 2022-03-14 12:29 | Outpatient (CLI) | payer MEDICAID, SELFPAY ==
[2022-03-14 13:34] LABS: Prostate Specific AG Urology 13.46 ng/mL (0-4)
== END 2022-03-14 12:30 | disposition home or self-care (01) ==
LOC: LAB 12:31
PROVIDERS: PCP Nurse Practitioner; Visit Provider Urology
DX: R97.20 Elevated prostate specific antigen [PSA] (principal)
CPT/HCPCS: 36415; 84153

== ENCOUNTER → 2022-03-20 14:25 | Outpatient (BNVA) | payer MEDICAID, SELFPAY | PROVIDERS: PCP Nurse Practitioner; Visit Provider Urology | DX: R97.20 Elevated prostate specific antigen [PSA] (principal); R33.9 Retention of urine, unspecified; N52.9 Male erectile dysfunction, unspecified | CPT/HCPCS: 81003 ==

== ENCOUNTER 2022-09-10 09:11 | Outpatient (CLI) | payer MEDICAID, SELFPAY ==
[2022-09-10 10:05] LABS: Prostate Specific AG Urology 20.39 ng/mL (0-4)
== END 2022-09-10 09:12 | disposition home or self-care (01) ==
LOC: LAB 09:14
PROVIDERS: PCP Nurse Practitioner; Visit Provider Urology
DX: R97.20 Elevated prostate specific antigen [PSA] (principal)
CPT/HCPCS: 36415; 84153

== ENCOUNTER → 2022-09-12 07:50 | Outpatient (BNVA) | payer MEDICAID, SELFPAY | PROVIDERS: PCP Nurse Practitioner; Visit Provider Urology | DX: R33.9 Retention of urine, unspecified (principal); R97.20 Elevated prostate specific antigen [PSA]; N52.9 Male erectile dysfunction, unspecified | CPT/HCPCS: 81003 ==

== ENCOUNTER → 2022-10-03 11:04 | Outpatient (BNVA) | payer MEDICAID, SELFPAY | PROVIDERS: PCP Nurse Practitioner; Visit Provider Nurse Practitioner Family | DX: R33.9 Retention of urine, unspecified (principal); R97.20 Elevated prostate specific antigen [PSA]; N52.9 Male erectile dysfunction, unspecified | CPT/HCPCS: 84153 ==

== ENCOUNTER 2022-12-05 10:06 | Emergency (ER) | payer MEDICAID, SELFPAY ==
[2022-12-05 10:11] VITALS: BP 132/82; PULSE 86; RESP 15; O2SAT 93
--- NOTE | 2022-12-05 10:17 | XR_ITS ---
WS: [id number] Exam: XR chest 1V portable [id number] Date/Time of Exam: 12/05/2022 10:23 AM Reason For Exam: dizziness Comparison 12/20/2020. The lungs are clear and fully expanded. Normal cardiomediastinal silhouette. No pleural effusions. [place] structures appear normal. Monitoring leads superimpose the chest. IMPRESSION: 1. Negative chest.
--- NOTE | 2022-12-05 10:17 | CT_ITS ---
WS: [id number] CT HEAD NONCONTRAST HISTORY: vertigo with dizziness TECHNIQUE: Contiguous axial imaging performed through the brain in 2.5 mm imaging. Bone and soft tiss ue windows. Sagittal and coronal reformats reviewed. All CT scans at [facility] use at least one of these dose optimization techniques: automated exposure control; mA and/or kV adjustment per pa tient size (includes targeted exams where dose is matched to clinical indication); or iterative recon struction. DLP: 997.88 mGy.cm COMPARISON: None available. No acute intracranial hemorrhage, midline shift or mass effect. Very minimal atrophy and small vessel ischemic disease. No prior infarct. Ventricles: Normal size with no hydrocephalus. No inferior displacement of the cerebellar tonsils. Paranasal sinuses: As visualized are clear. Mastoid air cells: Well pneumatized. Calvarium and scalp: Skull is intact with no soft tissue edema or swelling. IMPRESSION: 1. No acute intracranial hemorrhage or edema. 2. Mild atrophy and small vessel ischemic disease.
[2022-12-05 10:18] VITALS: TEMP 36.4
--- NOTE | 2022-12-05 10:20 | ED_ITS ---
HPI - Dizziness General: Chief Complaint: Nausea/Vomiting/Diarrhea Stated Complaint: N/V Time Seen by Provider: 12/05/22 10:07 History of Present Illness: HPI Narrative: 62-year-old male presents to the emergency department chief complaint of having dizziness that started early yesterday patient has a known history of this in the past including inner ear issues patient reports no chest pain palpitations or shortness of breath associated with this he reports over this dizziness was worse than normal in which she felt the room was spinning in which he nearly passed out in which she had several episodes of emesis prior to arrival patient presents here by EMS Zofran was provided prior to arrival patient endorses the sensation of the room spinning he does report he has had some upper respiratory congestion leading up to this for the past 1 week. Associated symptoms: Reports nausea and vomiting; Denies chest pain, chills, headache(s), malaise or palpitations Review of Systems General: Reports: 10 or more systems reviewed and unremarkable except in HPI and below Const: Denies: fever(s), chills, fatigue or malaise Eyes: Denies: change in vision or blurry vision Card: Denies: chest pain or palpitations Resp: Denies: dyspnea or productive cough GI: Reports: nausea and vomiting; Denies: abdominal pain : Denies: flank pain Musc: Denies: extremity pain or extremity swelling Skin/Breast: Denies: rash or pruritus Neuro: Reports: dizziness and vertigo; Denies: headache(s) Psych: Denies: anxiety or depression Tomer/Lymph: Denies: easy bleeding All/Imm: Denies: urticaria, throat swelling or facial swelling PFSH ED PFSH: Medical History Acute hypoxemic respiratory failure due to COVID-19 BPH (benign prostatic hyperplasia) not on treatment Elevated PSA Erectile dysfunction GERD (gastroesophageal reflux disease) Lower urinary tract symptoms (LUTS) Pneumonia due to COVID-19 virus Urinary retention Urolithiasis Surgical History H/O excision of mass (~09/2019) Lipoma left shoulder Family History Mother , at age 75 CAD (coronary artery disease), Onset Age: 60 Cancer Father , at age 80 CAD (coronary artery disease), Onset Age: 60 Diabetes Dementia Brother CAD (coronary artery disease), Onset Age: 60 Diabetes Denies family history of Clotting disorder Chronic kidney disease (CKD) Suicide Anesthesia complication Bleeding disorder Lung disease Stroke Social History Smoking and tobacco status: never smoked Second hand smoke exposure: No Smoking risk assessment/counseling performed?: No Alcohol intake: never Desire information about alcohol rehabilitation?: No Counseling given: No Substance/Drug Use: never Desire information about substance/drug rehabilitation?: No Counseling given: No Adopted: No Caregiver/support person: No Lives independently: Yes Household members: spouse Housing: House Marital status: Number of children: 1 service: No Current occupational status: retired 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 Current occupational exposures/hazards: No Do you think of yourself as: Straight/Heterosexual Current gender identity: Male Physical Exam Const: COMMON NORMALS: no acute distress, patient oriented x3 and healthy appearing HENMT: COMMON NORMALS: normocephalic and atraumatic HEAD & SCALP: normocephalic and atraumatic Eye: COMMON NORMALS: Equal, round and reactive pupils present and EOMs intact bilaterally PUPIL: Yes Equal, round and reactive pupils present OTHER: Horizontal nystagmus appreciated located the right eye upon distraction, no focal neurodeficits appreciated Neck/C-Spine: COMMON NORMALS: full ROM, supple and no JVD Lymph: LYMPHATIC: no lymphadenopathy noted Chest: COMMONS NORMALS: normal inspection of the chest and normal palpation of entire chest wall Resp: COMMON NORMALS: normal respiratory effort, No retractions and clear to auscultation bilaterally EFFORT & INSPECTION: Yes able to speak in complete sentences and Yes symmetric chest movement AUSCULTATION: clear to auscultation bilaterally Cardio: COMMON NORMALS: no JVD, regular rate and regular rhythm RATE: regular rate RHYTHM: regular rhythm GI: COMMON NORMALS: Normal to inspection, nondistended, normoactive bowel sounds present, Soft to palpation and non-tender INSPECTION: Yes normal to inspection PALPATION: Yes Soft to palpation : COMMON NORMALS: Yes no CVA tenderness BLADDER/KIDNEY EXAM: Yes no CVA tenderness Back/Pelvis: COMMON NORMALS: no CVA tenderness Extremity: COMMON NORMALS: normal to inspection and full ROM Neuro: COMMON NORMALS: patient oriented x3, CN's II-XII intact bilaterally, moves all extremities and no focal motor deficits Psych: COMMON NORMALS: mental status grossly normal, Normal thought process present, cooperative and normal affect THOUGHT PROCESS: Normal thought process present Skin: COMMON NORMALS: no rashes or lesions noted GENERAL SKIN EXAM: no rashes or lesions noted Course Vital Signs: Vital signs: Vital Signs Temperature 97.5 F L 12/05/22 10:18 Pulse Rate 83 12/05/22 10:41 Respiratory Rate 30 H 12/05/22 10:41 Blood Pressure 132/82 12/05/22 10:41 Pulse Oximetry 92 12/05/22 10:41 MDM - Dizziness Medical Decision Making Due to patient's symptoms and condition an IV will be established IV fluids provided for hydration medication provided for the patient associated symptoms we will continue to follow along concerns benign positional vertigo or peripheral vertigo versus central is prominent we will provide the patient some steroids and some Benadryl and some meclizine we will continue to follow Patient reports resolution of his symptoms still currently waiting urinalysis result anticipate discharge home pending urinalysis results advised further follow-up with primary care in next 2 to 3 days patient will be placed on some meclizine and Zofran for breakthrough symptoms which she was advised return the interim if any of his symptoms persist or worse. Lab Data 12/05/22 10:44 12/05/22 10:20 Laboratory Results WBC 8.98 10^3/uL (3.29-11.43) 12/05/22 10:44 RBC 5.58 10^6/uL (3.85-5.65) 12/05/22 10:44 Hgb 16.70 g/dL (11.27-16.99) 12/05/22 10:44 Hct 50.0 % (37-53) 12/05/22 10:44 MCV 89.6 fl (82-101) 12/05/22 10:44 MCH 29.9 pg (27-33) 12/05/22 10:44 MCHC 33.4 g/dL (30-55) 12/05/22 10:44 RDW 13.6 % (12.1-15.1) 12/05/22 10:44 Plt Count 251 10^3/cmm (157-399) 12/05/22 10:44 MPV 10.2 fL (7.4-10.4) 12/05/22 10:44 Neut % (Auto) 76.3 % 12/05/22 10:44 Lymph % (Auto) 15.9 % 12/05/22 10:44 Harlan % (Auto) 5.8 % 12/05/22 10:44 Eos % (Auto) 1.2 % 12/05/22 10:44 Baso % (Auto) 0.4 % 12/05/22 10:44 Neut # (Auto) 6.84 10^3/uL (1.8-7.7) 12/05/22 10:44 Lymph # (Auto) 1.4 10^3/uL (0.8-4.8) 12/05/22 10:44 Harlan # (Auto) 0.5 10^3/uL (0.2-0.9) 12/05/22 10:44 Eos # (Auto) 0.1 10^3/uL (0.0-0.8) 12/05/22 10:44 Baso # (Auto) 0.0 10^3/uL (0.0-0.1) 12/05/22 10:44 Nucleated RBC % (auto) 0 % 12/05/22 10:44 Nucleated RBCs # 0.0 /100WBC 12/05/22 10:44 Sodium 140 mmol/L (136-145) 12/05/22 10:20 Potassium 3.8 mmol/L (3.5-5.1) 12/05/22 10:20 Chloride 103 mmol/L (98-107) 12/05/22 10:20 Carbon Dioxide 26 mmol/L (22-29) 12/05/22 10:20 Anion Gap 14.8 (5-19) 12/05/22 10:20 BUN 12 mg/dL (8-23) 12/05/22 10:20 Creatinine 0.8 mg/dL (0.7-1.2) 12/05/22 10:20 GFR Calculation 97.3 mL/min (90-130) 12/05/22 10:20 Glucose 182 mg/dL (65-115) H 12/05/22 10:20 Calculated Osmolality 294 mOsm/kg (285-295) 12/05/22 10:20 Calcium 9.0 mg/dL (8.5-10.5) 12/05/22 10:20 Total Bilirubin 0.5 mg/dL (0.15-1.2) 12/05/22 10:20 AST 16 U/L (0-40) 12/05/22 10:20 ALT 21 U/L (0-41) 12/05/22 10:20 Alkaline Phosphatase 106 U/L (40-130) 12/05/22 10:20 Troponin T Gen 5 ng/L 6 ng/L (0-15) 12/05/22 10:20 C-Reactive Protein 3.6 mg/L (0.0-4.9) 12/05/22 10:20 Total Protein 7.2 g/dL (6.6-8.7) 12/05/22 10:20 Albumin 4.6 g/dL (3.5-5.2) 12/05/22 10:20 Globulin 2.6 g/dL (1.3-4.6) 12/05/22 10:20 Lipase 19 U/L (13-60) 12/05/22 10:20 Urine Color Yellow (Yellow) 12/05/22 12:02 Urine Appearance Clear (CLEAR) 12/05/22 12:02 Urine pH 5 (5-7) 12/05/22 12:02 Ur Specific Alder 1.025 (1.005-1.030) 12/05/22 12:02 Urine Protein Neg (Negative) 12/05/22 12:02 Urine Glucose (UA) 1+ (Normal) H 12/05/22 12:02 Urine Ketones Negative (Negative) 12/05/22 12:02 Urine Blood Neg (Negative) 12/05/22 12:02 Urine Nitrate Negative (Negative) 12/05/22 12:02 Urine Bilirubin Neg (Negative) 12/05/22 12:02 Urine Urobilinogen Norm mg/dL (Negative) 12/05/22 12:02 Ur Leukocyte Esterase Negative (Negative) 12/05/22 12:02 Discharge Plan Discharge Patient Disposition: Home Clinical Impression: Episodic peripheral vertigo Condition: Stable Prescriptions: New ondansetron 4 mg tablet,disintegrating 4 mg PO Q8H PRN (Reason: nausea and vomiting) Qty: 20 0RF meclizine 25 mg tablet 25 mg PO TID PRN (Reason: dizziness) Qty: 20 0RF Flonase Allergy Relief 50 mcg/actuation spray,suspension 1 spray intranasal DAILY PRN (Reason: nasal congestion) Qty: 16 0RF Rx Instructions: administer into each nostril No Action omeprazole 20 mg capsule,delayed release(DR/EC) 20 mg PO BID meclizine 25 mg tablet 25 mg PO TID PRN (Reason: dizziness) Qty: 90 2RF tamsulosin 0.4 mg capsule 0.4 mg PO .at bedtime Qty: 90 3RF sildenafil 100 mg tablet 100 mg PO DAILY PRN (Reason: sexual activity) Qty: 20 12RF Rx Instructions: 1 hour before intercourse on empty stomach. NO NITROGLYCERIN! ascorbic acid (vitamin C) [Vitamin C] 250 mg Tablet 250 mg PO BID zinc 50 mg Tablet 50 mg PO DAILY cholecalciferol (vitamin D3) [Vitamin D3] 50 mcg (2,000 unit) Capsule 50 mcg PO DAILY Discharge Orders: Discharge ED (Routine); Ordered 12/05/22 Ordered By: Damaso Mckeon Referrals: Zafar Lazcano, [employer] [facility] [Primary Care Provider] - 1-3 days Discharge Diet: Advance as tolerated Discharge Activity: Increase activity as tolerated Patient Instructions: Benign Paroxysmal Positional Vertigo (DC), Dizziness (ED) Activity Restrictions/Additional Instructions: Please further follow-up your primary care doctor in 2 to 3 days, please take medications as prescribed and please return in the interim if any of your symptoms persist or worse Coding Level of Care Code ED Button [employer]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
--- NOTE | 2022-12-05 10:37 | ECG_ITS ---
[facility] Test Date: 2022-12-05 Pat Name: Aamir Martinez Department: Room: Gender: Male [employer]: : 1960 Requested By: Damaso Mckeon Order Number: [id number] Fauzia MD: Meaghan Jay M.D. Measurements Intervals [place] Rate: 80 P: 0 SC: 0 QRS: -12 QRSD: 155 T: 141 QT: 432 QTc: 500 Interpretive Statements SINUS RHYTHN LEFT BUNDLE BRANCH BLOCK [120+ ms QRS DURATION, 80+ ms Q/S IN V1/V2, 85+ ms R IN I/aVL/V5/V6] Compared to ECG 11/26/2020 06:20:04 Left-axis deviation no longer present Electronically Signed On 12-05-2022 10:53:30 CDT by Meaghan Jay M.D. [id number]
[2022-12-05 10:41] VITALS: BP 132/82; PULSE 83; RESP 30; O2SAT 92
[2022-12-05] MEDS: methylPREDNISolone sod succ 125 MG in water for injection-sterile 2 ML 24 MG IVP (10:46)
[2022-12-05] MEDS: pantoprazole 40 mg SDV IVP (10:48)
[2022-12-05] MEDS: meclizine 25 mg tablet 50 MG PO (10:48)
[2022-12-05] MEDS: diphenhydrAMINE 50 mg/mL SDV 1mL 25 MG IVP (10:48)
[2022-12-05] MEDS: sodium chloride 0.9% 1,000 ML 999 ML IV (10:48)
[2022-12-05 10:55] LABS: Basophils % 0.4 %; Eosinophils # 0.1 10^3/uL (0.0-0.8); Eosinophils % 1.2 %; Lymphocytes # 1.4 10^3/uL (0.8-4.8); Lymphocytes % 15.9 %; Mean Corpuscular HGB Conc 33.4 g/dL (30-55); Mean Corpuscular Hemoglobin 29.9 pg (27-33); Mean Corpuscular Volume 89.6 fl (82-101); Mean Platelet Volume 10.2 fL (7.4-10.4); Monocytes # 0.5 10^3/uL (0.2-0.9); Monocytes % 5.8 %; Neutrophils # 6.84 10^3/uL (1.8-7.7); Neutrophils % 76.3 %; Nucleated Red Blood Cells % 0 %; Platelet Count 251 10^3/cmm (157-399); Red Blood Count 5.58 10^6/uL (3.85-5.65); Red Cell Distribution Width 13.6 % (12.1-15.1); White Blood Count 8.98 10^3/uL (3.29-11.43)
[2022-12-05 11:11] LABS: Alanine Aminotransferase 21 U/L (0-41); Albumin Level 4.6 g/dL (3.5-5.2); Alkaline Phosphatase 106 U/L (40-130); Anion Gap 14.8 (5-19); Aspartate Amino Transferase 16 U/L (0-40); Blood Urea Nitrogen 12 mg/dL (8-23); C Reactive Protein 3.6 mg/L (0.0-4.9); Carbon Dioxide 26 mmol/L (22-29); Chloride 103 mmol/L (98-107); Globulin 2.6 g/dL (1.3-4.6); Glomerular Filtration Rate 97.3 mL/min (90-130); Glucose 182 mg/dL (65-115); Lipase 19 U/L (13-60); Osmolality Calculated 294 mOsm/kg (285-295); Potassium 3.8 mmol/L (3.5-5.1); Sodium 140 mmol/L (136-145); Total Bilirubin 0.5 mg/dL (0.15-1.2); Total Protein 7.2 g/dL (6.6-8.7)
[2022-12-05 11:13] LABS: Troponin T (5th) Once 6 ng/L (0-15)
[2022-12-05 12:06] LABS: Add Urine Microscopic? NO; Charge for UA Resulting for Rev
[2022-12-05 12:12] LABS: Bilirubin Urine Neg (Negative); Blood Urine Neg (Negative); Glucose Urine UA 1+ (Normal); Ketones Urine Negative (Negative); Leukocyte Esterase Urine Negative (Negative); Nitrate Urine Negative (Negative); Protein Urine Neg (Negative); Specific Gravity, Urine 1.025 (1.005-1.030); Urine Appearance Clear (CLEAR); Urine Color Yellow (Yellow); Urobilinogen Urine Norm (Negative); pH Urine 5 (5-7)
== END 2022-12-05 12:38 | disposition home or self-care (01) ==
PROVIDERS: Emergency Provider Emergency Medicine; PCP Nurse Practitioner
DX: H81.399 Other peripheral vertigo, unspecified ear (principal)
CPT/HCPCS: 36415; 70450; 71045; 80053; 81003; 83690; 84484; 85025; 86140; 93005; 96361; 96374; 96375; 99285; C9113; J1200; J2930; J7030; J8597

== ENCOUNTER 2024-01-17 06:48 | Outpatient (CLI) | payer OTHER, SELFPAY ==
--- NOTE | 2024-01-17 06:54 | MR_ITS ---
WS: [id number] MRI BRAIN WITH HIGH-RESOLUTION IMAGING THROUGH THE INTERNAL AUDITORY CANALS WITHOUT AND WITH CONTRAST HISTORY: SENSORINEURAL HEARING LOSS COMPARISON: None available. TECHNIQUE: Multiplanar, multisequence imaging is performed through the brain. Additional 3 mm imaging performed in multiple planes through the internal auditory canal. Postcontrast imaging with 17 ml's of MultiHance. No acute intracranial hemorrhage, midline shift, edema or mass effect. Normal diffusion imaging. Very mild cerebral atrophy and small vessel disease. No prior infarct. Ventricles and extra-axial spaces are normal. No inferior displacement of cerebellar tonsils. Clivus and pituitary gland are normal. Internal and external auditory canals: Unremarkable. Cranial nerves VII and VIII complexes: Unremarkable. No enhancement or mass. Cerebellopontine angles: Normal. Paranasal sinuses: Normal. Mastoid air cells: Normal. Calvarium and scalp: Normal. Visualized tribal of [place] and dural venous sinuses demonstrate no abnormality. MR/MR iac's wo/w con* [id number] IMPRESSION: 1. Normal MRI internal auditory canals. No mass or abnormal enhancement. 2. No acute or prior infarct. 3. Very minimal age-related atrophy and small vessel disease. 4. Normal ventricles. 5. No significant sinus disease.
[2024-01-17] MEDS: gadobenate dimeglumine 20 mL vial 17 ML IV (07:47)
== END 2024-01-17 06:49 | disposition home or self-care (01) ==
PROVIDERS: PCP Nurse Practitioner; Visit Provider Specialist
DX: H90.3 Sensorineural hearing loss, bilateral (principal)
CPT/HCPCS: 70553; A9577

== ENCOUNTER → 2024-11-26 12:27 | Outpatient (BNVA) | payer MEDICARE, OTHER, SELFPAY | PROVIDERS: PCP Nurse Practitioner; Visit Provider Nurse Practitioner Family | DX: L57.8 Other skin changes due to chronic exposure to nonionizing radiation (principal); L81.4 Other melanin hyperpigmentation; D48.5 Neoplasm of uncertain behavior of skin | CPT/HCPCS: 11102; 69100; 99203 ==

== ENCOUNTER → 2024-12-24 08:06 | Outpatient (BNVA) | payer MEDICARE, OTHER, SELFPAY | PROVIDERS: PCP Nurse Practitioner; Visit Provider Dermatology | DX: D22.39 Melanocytic nevi of other parts of face (principal); C44.212 Basal cell carcinoma of skin of right ear and external auricular canal | CPT/HCPCS: 15260; 17311; 99212 ==

== ENCOUNTER → 2025-01-05 14:05 | Outpatient (BNVA) | payer MEDICARE, OTHER, SELFPAY | PROVIDERS: PCP Nurse Practitioner; Visit Provider Dermatology | DX: C44.212 Basal cell carcinoma of skin of right ear and external auricular canal (principal) | CPT/HCPCS: 99213 ==

== ENCOUNTER → 2025-01-15 09:25 | Outpatient (BNVA) | payer MEDICARE, OTHER, SELFPAY | PROVIDERS: PCP Nurse Practitioner; Visit Provider Dermatology | DX: C44.212 Basal cell carcinoma of skin of right ear and external auricular canal (principal); D22.39 Melanocytic nevi of other parts of face | CPT/HCPCS: 99212 ==